=== PATIENT | female | born 1935 | race Caucasian/White ===

== ENCOUNTER 2016-10-14 10:34 | Inpatient (IN) | payer MEDICARE, OTHER ==
--- NOTE | 2016-10-14 11:14 | ERPHSYRPT ---
- History of Present Illness Time Seen by Provider: 10/14/16 11:04 Source: patient, family Exam Limitations: no limitations Patient Subjective Stated Complaint: altered loc Triage Nursing Assessment: daughter stated pt called her this morning and thought she had her granddaughter and cant find her. when her daughter came over , pt was diaphoretic and 'wasnt making sense. on arrival, scattered thought process. denies pain or fall. states 'i feel like im getting my mind back now' alert to name, place and time. hair wet from sweat but skin dry. states felt funny at home and then ate peanut butter and toast prior to arrival. Physician History: The patient is an 81-year-old female with her daughter complaining that she was confused earlier this morning. She was also shaky and sweaty this morning. Yesterday she wasn't feeling well. Today she says she feels "off". She's had a cough for 2 months. She has a past medical history significant for COPD, hypertension, high cholesterol, and hypothyroidism. She's had her gallbladder removed. Timing/Duration: day(s) (2) Severity: moderate Modifying Factors: Improves With: nothing Associated Symptoms: cough Allergies/Adverse Reactions: No Known Allergies Allergy (Verified 10/14/16 11:00) Home Medications: Hydralazine HCl 50 mg PO QID 06/02/14 [History] Potassium Chloride 10 Meq Tab* [Klor Con 10 MEQ] 10 meq PO TID 06/02/14 [ History] Lorazepam 1 mg [Ativan 1 MG] 2 mg PO TIDPRN 06/03/14 [History] Aspirin 81 mg PO DAILY 07/12/14 [History] Ascorbic Acid 500 mg [Vitamin C 500 MG] 500 mg PO DAILY 04/05/15 [History] Bumetanide 1 mg [Bumex 1 mg] 1 mg PO BID 04/05/15 [History] Cholecalciferol (Vitamin D3) [Vitamin D3] 1,000 unit PO DAILY 04/05/15 [History] Fluticasone/Vilanterol [Breo Ellipta 100-25 Mcg INH] 1 each IH DAILY 04/05/15 [ History] Magnesium 250 mg PO DAILY 04/05/15 [History] Flaxseed Oil [Flax Seed Oil] 1,000 mg PO DAILY 06/14/15 [History] Multivitamin W-Minerals/Lutein [Centrum Silver Tablet] 1 each PO DAILY 06/14/15 [History] Pregabalin [Lyrica] 75 mg PO TID 06/14/15 [History] Atorvastatin Calcium [Lipitor 40Mg] 40 mg PO DAILY 04/15/16 [History] Benzonatate [Tessalon Perle] 100 mg PO TID PRN 08/06/16 [History] Levothyroxine Sodium 25 Mcg [Synthroid 25 Mcg] 75 mcg PO DAILY 08/06/16 [ History] Albuterol Sulfate [Proair Hfa] 8.5 gm IH QIDPRN PRN 10/14/16 [History] Albuterol/Ipratropium 3ml Neb* [DUONEB 0.5-3 MG/3 ml Neb] 3 ml IH DAILY [History] Docusate Sodium 100 mg [Colace 100 MG] 100 mg PO DAILY 10/14/16 [History] Hydrocodone/Chlorphen Polis [Hydrocodone-Chlorpheniram Susp] 115 ml PO BID 10/14 [History] Losartan Potassium 50 mg [Cozaar 50 MG] 50 mg PO DAILY 10/14/16 [History] Phenazopyridine HCl [Azo Standard] 97.5 mg PO BID 10/14/16 [History] Propranolol HCl 40 mg PO BID 10/14/16 [History] Hx Tetanus, Diphtheria Vaccination/Date Given: Yes Hx Influenza Vaccination/Date Given: No Hx Pneumococcal Vaccination/Date Given: No Immunizations Up to Date: Yes - Review of Systems Constitutional: No Fever, No Chills Eyes: No Symptoms Ears, Nose, & Throat: Throat Pain Respiratory: Cough Cardiac: No Chest Pain, No Edema, No Syncope Abdominal/Gastrointestinal: No Abdominal Pain, No Nausea, No Vomiting, No Diarrhea Genitourinary Symptoms: No Dysuria Musculoskeletal: No Back Pain, No Neck Pain Skin: No Rash Neurological: No Dizziness, No Focal Weakness, No Sensory Changes Psychological: No Symptoms Endocrine: No Symptoms Hematologic/Lymphatic: No Symptoms Immunological/Allergic: No Symptoms All Other Systems: Reviewed and Negative - Past Medical History Pertinent Past Medical History: Yes Neurological History: Peripheral Neuropathy ENT History: Cataracts Cardiac History: No Pertinent History Respiratory History: Bronchitis, COPD, Pneumonia, Sleep Apnea, Other Endocrine Medical History: No Pertinent History Musculoskeletal History: Arthritis GI Medical History: Hemorrhoids History: No Pertinent History Psycho-Social History: Anxiety, Depression Female Reproductive Disorders: Cervical Cancer Other Medical History: 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 tracheal stenosis - Past Surgical History Past Surgical History: Yes Neuro Surgical History: No Pertinent History Cardiac: No Pertinent History Respiratory: Other Gastrointestinal: Appendectomy, Cholecystectomy Genitourinary: No Pertinent History Musculoskeletal: Joint Replacement, Orthopedic Surgery Female Surgical History: Hysterectomy Other Surgical History: Bilateral hip and knee replacements. Arthritis in spine and had spinal surgery. recent tracheal stent placed for stenosis and removed, partial hyst, carpal tunnel - Social History Smoking Status: Former smoker How long have you smoked: 40 years Exposure to second hand smoke: No Drug Use: none Patient Lives Alone: No - Nursing Vital Signs Nursing Vital Signs: Initial Vital Signs Temperature 98.7 F Temperature Source Oral Pulse Rate 74 Respiratory Rate 22 Blood Pressure [Right Arm] 147/100 Pain Intensity 0 - Physical Exam General Appearance: no apparent distress Eye Exam: PERRL/EOMI, eyes nml inspection Ears, Nose, Throat Exam: normal ENT inspection, TMs normal, pharynx normal, moist mucous membranes Neck Exam: normal inspection, non-tender, supple, full range of motion Respiratory Exam: rhonchi Cardiovascular Exam: regular rate/rhythm, normal heart sounds, normal peripheral pulses Gastrointestinal/Abdomen Exam: soft, normal bowel sounds, No tenderness, No mass Pelvic Exam: not done Rectal Exam: not done Back Exam: normal inspection, normal range of motion, No CVA tenderness, No vertebral tenderness Extremity Exam: normal inspection, normal range of motion, pelvis stable Neurologic Exam: alert, oriented x 3, cooperative, normal mood/affect, nml cerebellar function, nml station & gait, sensation nml, No motor deficits Skin Exam: normal color, warm, dry, No rash Lymphatic Exam: No adenopathy SpO2 Interpretation: normal SpO2: 99 Oxygen Delivery: Room Air - Radiology Exams Chest X-ray Interpretation: Interpreted by me, Infiltrates (new infiltrate in sulcus on lateral view, comp cxr 09/20/16) Ordered Tests: Active Orders 24 hr Category Date Time Status Assistant [employer] Professional STAT Care 10/14/16 11:25 Active Cath for Specimen-Straight STAT Care 10/14/16 11:25 Active IV Insertion STAT Care 10/14/16 11:25 Active CHEST 2 VIEWS (PA AND LAT) Stat Exams 10/14/16 11:26 Taken BLOOD CULTURE Stat Lab 10/14/16 11:26 Received CBC W DIFF Stat Lab 10/14/16 11:25 Completed CMP Stat Lab 10/14/16 11:25 Completed NT PRO BNP Stat Lab 10/14/16 11:25 Completed TROPONIN Stat Lab 10/14/16 11:25 Completed UA W/ MICROSCOPIC Stat Lab 10/14/16 11:20 Completed Lab/Rad Data: Laboratory Result Diagrams 10/14/16 11:25 10/14/16 11:25 Laboratory Results 10/14/16 10/14/16 10/14/16 Range/Units 11:25 11:25 11:20 WBC 8.5 (4.0-10.5) K/mm3 RBC 4.04 L (4.1-5.4) M/mm3 Hgb 11.6 L (12.0-16.0) gm/dl Hct 37.7 (35-47) % MCV 93.3 (78-100) fl MCH 28.7 (26-32) pg MCHC 30.8 L (32-36) g/dl RDW 14.9 H (11.5-14.0) % Plt Count 158 (150-450) K/mm3 MPV 11.5 H (6-9.5) fl Gran % 70.8 H (36.0-66.0) % Lymphocytes % 18.0 L (24.0-44.0) % Monocytes % 10.0 (0.0-12.0) % Eosinophils % 0.8 (0.00-5.0) % Basophils % 0.4 (0.0-0.4) % Basophils # 0.03 (0-0.4) Sodium 144 (136-145) mEq/L Potassium 4.2 (3.5-5.1) mEq/L Chloride 103 (98-107) mEq/L Carbon Dioxide 36.5 H (21-32) mEq/L Anion Gap 9.0 (5-15) MEQ/L BUN 29 H (9-20) mg/dL Creatinine 1.22 (0.55-1.30) mg/dl Estimated GFR 45 ML/MIN Glucose 153 H (70-110) MG/DL Calcium 9.8 (8.5-10.1) mg/dL Total Bilirubin 0.5 (0.2-1.0) mg/dL AST 27 (15-37) U/L ALT 27 (12-78) U/L Alkaline Phosphatase 69 (46-116) U/L Troponin I < 0.017 (0.000-0.056) ng/ml NT-Pro-B Natriuret Pep 665 H (0-450) pg/ml Serum Total Protein 7.0 (6.4-8.2) gm/dL Albumin 3.5 (3.4-5.0) g/dL Ur Collection Type CATH Urine Color YELLOW (YELLOW) Urine Appearance CLEAR (CLEAR) Urine pH 7.0 (5-6) Ur Specific [place] 1.015 (1.005-1.025) Urine Protein TRACE (Negative) Urine Glucose (UA) NEGATIVE (NEGATIVE) mg/dL Urine Ketones NEGATIVE (NEGATIVE) Urine Nitrite NEGATIVE (NEGATIVE) Urine Bilirubin NEGATIVE (NEGATIVE) Urine Urobilinogen 0.2 (0-1) mg/dL Urine WBC (Auto) NEGATIVE (NEGATIVE) Urine RBC (Auto) TRACE-INTACT (0-5) Jose Luis/ul Urine Microscopic RBC 0-2 (0-2) /HPF Urine Microscopic WBC 0-2 (0-5) /HPF Ur Epithelial Cells FEW (FEW) /HPF Urine Bacteria FEW (NEGATIVE) /HPF Specimen Received 10/14/16 1045 - Progress Progress: unchanged Discussed with : Faheem Will see patient in: hospital (observation) Counseled pt/family regarding: lab results, diagnosis, rad results - Departure Time of Disposition: 12:56 Departure Disposition: Observation (per Dr Mayen) Clinical Impression: Infiltrate noted on imaging study Condition: Stable Critical Care Time: No
[2016-10-14 11:34] LABS: BASOPHIL % 0.4 % (0.0-0.4); Eosinophil % 0.8 % (0.00-5.0); Granulocytes % 70.8 % (36.0-66.0); Mean Cell Volume 93.3 fl (78-100); Mean Corpuscular Hemoglobin 28.7 pg (26-32); Mean Platelet Volume 11.5 fl (6-9.5); Platelet Count 158 K/mm3 (150-450); Red Blood Count 4.04 M/mm3 (4.1-5.4); Red Cell Distribution Width 14.9 % (11.5-14.0); White Blood Count 8.5 K/mm3 (4.0-10.5)
[2016-10-14 12:15] LABS: Collection Type CATH
[2016-10-14 12:16] LABS: COMPLETE URINE MICROSCOPIC? YES
[2016-10-14 12:21] LABS: Bacteria FEW /HPF (NEGATIVE); Epithelial Cells FEW /HPF (FEW); WBC 0-2 /HPF (0-5)
[2016-10-14 12:22] LABS: ALBUMIN 3.5 g/dL (3.4-5.0); ALKALINE PHOSPHATASE 69 U/L (46-116); BILIRUBIN,TOTAL 0.5 mg/dL (0.2-1.0); BLOOD UREA NITROGEN 29 mg/dL (9-20); CHLORIDE 103 mEq/L (98-107); Carbon Dioxide 36.5 mEq/L (21-32); Glucose 153 MG/DL (70-110); Potassium 4.2 mEq/L (3.5-5.1); SGOT/AST 27 U/L (15-37); SGPT/ALT 27 U/L (12-78); SODIUM 144 mEq/L (136-145); TROPONIN < 0.017 ng/ml (0.000-0.056)
[2016-10-14] MEDS ORDERED: ROCEPHIN 1 Gm-D5w 50 ml Bag** 50 ML IV ONE ×2 (12:56→13:03)
[2016-10-14] MEDS ORDERED: PROVENTIL 2.5 MG/3 ML NEB IH ONE (13:45)
[2016-10-14] MEDS: PROVENTIL 2.5 MG/3 ML NEB IH SCH ×2 (14:10→18:31)
[2016-10-14] MEDS: Zithromax 500 MG/ 250 ML NaCl Premix 250 ML IV SCH (14:44)
[2016-10-14] MEDS ORDERED: Ativan 1 MG PO PRN (17:54)
[2016-10-14] MEDS ORDERED: BUMEX 1 MG PO SCH (18:00)
[2016-10-14] MEDS ORDERED: Tussionex Pennkinetic Susp PO PRN (18:04)
--- NOTE | 2016-10-14 19:42 | XRAY ---
Indication: Cough and pain between shoulder blades. Comparison: September 20, 2016. PA/lateral chest remains hyperinflated and clear. Heart is not enlarged. Vascularity normal. Bony thorax intact again with spinal degenerative changes. Impression: Stable nonacute hyperinflated chest.
[2016-10-14] MEDS: Apresoline 25 MG TABLET PO SCH (21:33)
[2016-10-14] MEDS: Lyrica 25 MG PO SCH (21:33)
[2016-10-14] MEDS: Inderal 20 MG PO SCH (21:33)
[2016-10-14] MEDS: Klor Con 10 MEQ PO SCH (21:33)
[2016-10-14] MEDS: Lyrica 50MG PO SCH (21:34)
[2016-10-15] MEDS: PROVENTIL 2.5 MG/3 ML NEB IH SCH ×4 (00:35→18:43)
[2016-10-15 06:22] LABS: BASOPHIL % 0.4 % (0.0-0.4); Eosinophil % 1.6 % (0.00-5.0); Granulocytes % 52.8 % (36.0-66.0); Lymphocytes % 33.9 % (24.0-44.0); Mean Cell Volume 94.2 fl (78-100); Mean Platelet Volume 11.4 fl (6-9.5); Monocytes % 11.3 % (0.0-12.0); Platelet Count 150 K/mm3 (150-450); Red Cell Distribution Width 15.1 % (11.5-14.0); White Blood Count 7.7 K/mm3 (4.0-10.5)
[2016-10-15 06:27] LABS: Mean Corpuscular Hemoglobin 28.6 pg (26-32)
[2016-10-15 06:57] LABS: ALBUMIN 3.4 g/dL (3.4-5.0); ALKALINE PHOSPHATASE 60 U/L (46-116); ANION GAP 7.6 MEQ/L (5-15); BILIRUBIN,TOTAL 0.5 mg/dL (0.2-1.0); BLOOD UREA NITROGEN 21 mg/dL (9-20); CHLORIDE 107 mEq/L (98-107); Glucose 99 MG/DL (70-110); Potassium 4.7 mEq/L (3.5-5.1); SGOT/AST 12 U/L (15-37); SGPT/ALT 22 U/L (12-78); SODIUM 147 mEq/L (136-145); Total Protein 6.4 gm/dL (6.4-8.2)
[2016-10-15 07:01] LABS: TROPONIN < 0.017 ng/ml (0.000-0.056)
[2016-10-15] MEDS ORDERED: Ventolin Hfa MDI IH PRN (08:35)
[2016-10-15] MEDS: Klor Con 10 MEQ PO SCH ×3 (09:08→22:23)
[2016-10-15] MEDS: Lyrica 25 MG PO SCH ×3 (09:08→22:24)
[2016-10-15] MEDS: BUMEX 1 MG PO SCH ×2 (09:09→17:11)
[2016-10-15] MEDS: Inderal 20 MG PO SCH ×2 (09:09→22:22)
[2016-10-15] MEDS: Lyrica 50MG PO SCH ×3 (09:09→22:23)
[2016-10-15] MEDS: Apresoline 25 MG TABLET PO SCH ×4 (09:09→22:22)
[2016-10-15] MEDS: ZOCOR 20MG PO SCH (09:15)
[2016-10-15] MEDS: MAG-OX 400 PO SCH (09:15)
[2016-10-15] MEDS: Colace 100 MG PO SCH (09:16)
[2016-10-15] MEDS: PYRIDIUM 200 MG PO SCH ×2 (09:16→22:24)
[2016-10-15] MEDS: ECOTRIN 81 MG PO SCH (09:16)
[2016-10-15] MEDS: VITAMIN D PO SCH (09:16)
[2016-10-15] MEDS: THERAGRAN MULTIVITAMIN PO SCH (09:16)
[2016-10-15] MEDS: ROCEPHIN 1 Gm-D5w 50 ml Bag** 50 ML IV SCH (09:17)
[2016-10-15] MEDS: Cozaar 50 MG PO SCH (09:17)
[2016-10-15] MEDS: SYNTHROID 75 MCG PO SCH (09:17)
[2016-10-15] MEDS ORDERED: NON-FORMULARY ITEM (Cholecalciferol (Vitamin D3) [Vitamin D3] 1,000 UNIT) PO SCH (10:00)
[2016-10-15] MEDS ORDERED: LIPITOR 40MG PO SCH (10:00)
[2016-10-15] MEDS ORDERED: SYNTHROID 25 MCG PO SCH (10:00)
[2016-10-15] MEDS ORDERED: NON-FORMULARY ITEM (Magnesium [Magnesium] 250 MG) PO SCH (10:00)
[2016-10-15] MEDS ORDERED: NON-FORMULARY ITEM (Aspirin [Aspirin] 81 MG) PO SCH (10:00)
[2016-10-15] MEDS ORDERED: PHENAZOPYRIDINE HCL 97.5 MG PO SCH (10:00)
[2016-10-15] MEDS ORDERED: NON-FORMULARY ITEM (Multivitamin W-Minerals/Lutein [Centrum Silver Tablet] 1 EACH) PO SCH (10:00)
[2016-10-15] MEDS ORDERED: NON-FORMULARY ITEM (Fluticasone/Vilanterol [Breo Ellipta 100-25 Mcg Inh] 1 EACH) IH SCH (10:00)
[2016-10-15] MEDS: Vitamin C 500 MG PO SCH ×2 (10:10→15:10)
[2016-10-15] MEDS: LOTRIMIN CREAM 30 GM TP SCH ×2 (12:52→22:23)
[2016-10-15] MEDS: solu-MEDROL 125 MG IV SCH ×2 (13:02→22:24)
[2016-10-15] MEDS: Zithromax 500 MG/ 250 ML NaCl Premix 250 ML IV SCH (15:09)
[2016-10-15] MEDS: Advair Hfa 115/21 Common canister IH SCH (18:45)
[2016-10-15] MEDS: Ativan 1 MG PO PRN (22:25)
[2016-10-15] MEDS: Tussionex Pennkinetic Susp PO PRN (22:28)
[2016-10-16] MEDS: PROVENTIL 2.5 MG/3 ML NEB IH SCH ×4 (00:23→18:55)
[2016-10-16] MEDS: solu-MEDROL 125 MG IV SCH ×2 (06:12→18:46)
[2016-10-16] MEDS: Advair Hfa 115/21 Common canister IH SCH ×2 (06:50→19:03)
--- NOTE | 2016-10-16 07:40 | HP ---
CHIEF COMPLAINT: Altered mental status and dyspnea on exertion. HISTORY OF PRESENT ILLNESS: The patient is an 81 year-old white female with a long history of chronic obstructive pulmonary disease. She apparently became confused last evening. She was noted to be very short of breath on any ambulation. The patient was felt the need to be admitted to the hospital with altered mental status, further evaluation and management. The patient's work up was essentially unrevealing other than her observed status as being more short of breath than usual. PAST MEDICAL/SURGICAL HISTORY: Otherwise significant for pneumonia, sleep apnea, peripheral neuropathy, cataracts, arthritis, hemorrhoids, anxiety and depression. She has had cervical cancer. She had a hysterectomy, joint replacement orthopedic surgery for that, appendectomy, cholecystectomy, bilateral knee replacement. She had a tracheal stent placed and then removed due to her inability to tolerate it. HOME MEDICATIONS: Potassium, lorazepam, aspirin, vitamin C, vitamin D, fluticasone, magnesium, flax seed oil, multivitamins, Lyrica, Lipitor, Tessalon, Synthroid, ProAir, DuoNeb, Colace, hydrocodone, Cozaar, phenazopyridine, propranolol. ALLERGIES: NKDA. PHYSICAL EXAMINATION: Revealed an obese, elderly white female whose is significantly dyspneic upon having just walked back to her bed from the sink. VITAL SIGNS: The patient's initial vital signs in the emergency room revealed temperature 98.7F oral, pulse 74, respiratory rate 22, blood pressure 147/100. HEENT: Normocephalic, atraumatic. She is wearing oxygen per nasal cannula at 4 liters presently. Pupils equal, round and reactive to light. Extraocular movements intact. Oropharynx pink and moist. NECK: Supple without lymphadenopathy, thyromegaly or JVD. CHEST: Reveals diffuse wheezes. HEART: Regular rate and rhythm without murmurs, rubs or gallops. ABDOMEN: Soft, nontender, nondistended without hepatosplenomegaly or masses. EXTREMITIES: Without clubbing, cyanosis or edema. NEUROLOGIC: The patient is alert and oriented x3. No focal deficits are noted. LAB DATA AND TESTS: Chest x-ray showed no new infiltrates. Influenza A and B and respiratory syncytial virus were negative. She had a glucose of 153, BUN 29, creatinine 1.22. Electrolytes were normal. Liver enzymes were normal. Troponin was less than 0.017. ProBNP was slightly elevated at 665. Her white blood cell count was 8,500, hemoglobin 11.6, PLT count 156,000. ASSESSMENT: A patient with chronic obstructive pulmonary disease exacerbation. She has been admitted and placed on Rocephin and Zithromax. We will add Solu-Medrol 60 mg IV every 8 hours. Her mental status has apparently cleared up from when she was seen in the emergency room as she recognizes me, is alert and oriented x3 presently.
--- NOTE | 2016-10-16 09:02 | PCM.NOTE ---
Date and Time: 10/16/16 0900 Subjective Assessment: She continues to have dyspnea and feel weak. She feels like her altered mental status has improved. She reports she has BiPAP that she can wear at home if needed. - Review of Systems Constitutional: Fatigue Eyes: No Symptoms Ears, Nose, & Throat: No Symptoms Respiratory: Cough, Short Of Breath, Wheezing Cardiac: No Symptoms Abdominal/Gastrointestinal: No Symptoms Genitourinary Symptoms: No Symptoms Musculoskeletal: No Symptoms Skin: No Symptoms Objective Exam General Appearance: no apparent distress, alert Neurologic Exam: alert, oriented x 3, cooperative, normal mood/affect Skin Exam: normal color, warm, dry, No rash Respiratory Exam: airway intact, other (few scattered wheezes, equal breath sounds), No respiratory distress, No crackles/rales Cardiovascular Exam: regular rate/rhythm, normal heart sounds, No murmur, No friction rub, No gallop Gastrointestinal/Abdomen Exam: soft, normal bowel sounds, No tenderness, No distention, No mass Extremity Exam: other (no c/c/e) OBJECTIVE DATA Vital Signs: Vital Signs - 24 hr Temp Pulse Resp BP Pulse Ox 10/16/16 07:35 97.7 F 56 L 22 152/69 97 10/16/16 06:00 55 L 16 99 10/16/16 04:00 97.5 F 50 L 20 129/58 95 10/16/16 00:00 97.6 F 54 L 22 163/73 97 10/15/16 20:00 98.4 F 68 15 147/59 97 10/15/16 18:00 68 22 97 10/15/16 16:00 98.3 F 54 L 19 149/67 97 10/15/16 12:00 98.5 F 62 20 161/68 96 Oxygen-Last 24 hours O2 Percentage 4 Liters = 36% O2 Percentage 4 Liters = 36% O2 Percentage 4 Liters = 36% O2 Percentage 4 Liters = 36% O2 Percentage 4 Liters = 36% O2 Percentage 4 Liters = 36% Pain Assessment - Last Documented Pain Intensity 0 Pain Scale Used 0-10 Pain Scale Intake and Output: Intake & Output 10/14/16 10/15/16 10/16/16 10/17/16 06:59 06:59 06:59 06:59 Intake Total 1360 1400 Output Total 3900 Balance 1360 -2500 Weight 99.564 kg Multi-Disciplinary Progress Notes: Multi-Disciplinary Progress Notes 10/15/16 10:03 Case Management Note by Meagan Flower DISCHARGE PLAN REVIEWED. PT NORMALLY LIVES AT HOME ALONE, HAS A WALKER AND USES HOME OXYGEN. PT REFUSED TO ASSIGN A LAY CAREGIVER. PLAN AT THIS ASSESSMENT IS TO GO HOME TO PRE EISODIC LEVEL OF FUNCTION. WILL CONTINUE TO MONITOR FOR ALL D/C NEEDS. Initialized on 10/15/16 10:03 - END OF NOTE Assessment/Plan (1) Acute exacerbation of chronic obstructive airways disease Current Visit: No Status: Acute Assessment & Plan: Decrease solumedrol to 60 mg IV q 12 hours today. Continue IV antibiotics. Continue oxygen as needed. Will as for Bipap at night. Code(s): J44.1 - CHRONIC OBSTRUCTIVE PULMONARY DISEASE W (ACUTE) EXACERBATION
[2016-10-16] MEDS: PYRIDIUM 200 MG PO SCH ×2 (09:16→21:58)
[2016-10-16] MEDS: SYNTHROID 75 MCG PO SCH (09:16)
[2016-10-16] MEDS: Lyrica 25 MG PO SCH ×3 (09:17→21:55)
[2016-10-16] MEDS: Colace 100 MG PO SCH (09:17)
[2016-10-16] MEDS: VITAMIN D PO SCH (09:17)
[2016-10-16] MEDS: Apresoline 25 MG TABLET PO SCH ×4 (09:18→21:57)
[2016-10-16] MEDS: ECOTRIN 81 MG PO SCH (09:18)
[2016-10-16] MEDS: ZOCOR 20MG PO SCH (09:18)
[2016-10-16] MEDS: Lyrica 50MG PO SCH ×3 (09:18→21:56)
[2016-10-16] MEDS: BUMEX 1 MG PO SCH ×2 (09:18→18:45)
[2016-10-16] MEDS: Klor Con 10 MEQ PO SCH ×3 (09:18→21:57)
[2016-10-16] MEDS: Cozaar 50 MG PO SCH (09:19)
[2016-10-16] MEDS: MAG-OX 400 PO SCH (09:19)
[2016-10-16] MEDS: THERAGRAN MULTIVITAMIN PO SCH (09:19)
[2016-10-16] MEDS: Inderal 20 MG PO SCH ×2 (09:27→22:03)
[2016-10-16] MEDS: ROCEPHIN 1 Gm-D5w 50 ml Bag** 50 ML IV SCH (10:01)
[2016-10-16] MEDS: LOTRIMIN CREAM 30 GM TP SCH ×2 (10:08→21:58)
[2016-10-16] MEDS: Vitamin C 500 MG PO SCH (10:09)
[2016-10-16] MEDS: ENOXAPARIN SODIUM SQ SCH (10:13)
[2016-10-16 12:54] LABS: Collection Type CCMS; Ph 5.5 (5-6)
[2016-10-16 12:55] LABS: ADD URINE CULTURE? YES (NO); Bacteria RARE /HPF (NEGATIVE); COMPLETE URINE MICROSCOPIC? YES; Epithelial Cells FEW /HPF (FEW); WBC 0-2 /HPF (0-5)
[2016-10-16] MEDS: Zithromax 500 MG/ 250 ML NaCl Premix 250 ML IV SCH (14:53)
[2016-10-16] MEDS: Tussionex Pennkinetic Susp PO PRN (21:55)
[2016-10-16] MEDS: Ativan 1 MG PO PRN (21:57)
[2016-10-17] MEDS: PROVENTIL 2.5 MG/3 ML NEB IH SCH ×4 (00:41→18:51)
[2016-10-17] MEDS: solu-MEDROL 125 MG IV SCH ×2 (05:22→18:02)
[2016-10-17] MEDS: Advair Hfa 115/21 Common canister IH SCH ×2 (07:00→18:51)
--- NOTE | 2016-10-17 08:54 | PCM.NOTE ---
Date and Time: 10/17/16 0852 Subjective Assessment: She reports she is feeling better and slept much better. She has been eating and drinking well and things are tasting better. She has been up in her room and up to a chair. - Review of Systems Constitutional: Fatigue Eyes: No Symptoms Ears, Nose, & Throat: No Symptoms Respiratory: Cough, Short Of Breath, Wheezing Cardiac: No Symptoms Abdominal/Gastrointestinal: No Symptoms Genitourinary Symptoms: No Symptoms Musculoskeletal: No Symptoms Skin: No Symptoms Objective Exam General Appearance: no apparent distress Neurologic Exam: alert, cooperative, normal mood/affect Skin Exam: normal color, warm, dry, No rash Respiratory Exam: other (few scattered wheezes, no crackles, no rhonchi.) Cardiovascular Exam: regular rate/rhythm, normal heart sounds, No murmur, No friction rub, No gallop Gastrointestinal/Abdomen Exam: soft, normal bowel sounds, No tenderness, No distention, No mass Extremity Exam: other (no c/c/e) OBJECTIVE DATA Vital Signs: Vital Signs - 24 hr Temp Pulse Resp BP Pulse Ox 10/17/16 08:00 19 10/17/16 07:20 97.8 F 58 L 19 185/79 95 10/17/16 07:00 58 L 18 96 10/17/16 04:00 97.9 F 65 17 122/68 95 10/17/16 00:41 54 L 18 97 10/17/16 00:00 97.8 F 67 20 128/72 96 10/16/16 20:00 98.5 F 55 L 20 128/60 96 10/16/16 18:00 55 L 22 98 10/16/16 16:02 98 F 58 L 20 134/68 97 10/16/16 12:42 60 20 98 10/16/16 12:00 20 10/16/16 11:23 98.4 F 97 H 20 136/63 97 Oxygen-Last 24 hours O2 Percentage 4 Liters = 36% O2 Percentage 4 Liters = 36% O2 Percentage 4 Liters = 36% O2 Percentage 4 Liters = 36% O2 Percentage 4 Liters = 36% Pain Assessment - Last Documented Pain Intensity 0 Pain Scale Used 0-10 Pain Scale Intake and Output: Intake & Output 10/15/16 10/16/16 10/17/16 10/18/16 06:59 06:59 06:59 06:59 Intake Total 1000 1820 Output Total 3900 2600 Balance -8980 -957 Lab Results: Lab Results-Last 24 Hours 10/16/16 Range/Units 12:17 Ur Collection Type CCMS Urine Color DARK YELLOW (YELLOW) Urine Appearance CLEAR (CLEAR) Urine pH 5.5 (5-6) Ur Specific [place] 1.015 (1.005-1.025) Urine Protein NEGATIVE (Negative) Urine Glucose (UA) 500 (NEGATIVE) mg/dL Urine Ketones NEGATIVE (NEGATIVE) Urine Nitrite POSITIVE (NEGATIVE) Urine Bilirubin NEGATIVE (NEGATIVE) Urine Urobilinogen 0.2 (0-1) mg/dL Urine WBC (Auto) NEGATIVE (NEGATIVE) Urine RBC (Auto) NEGATIVE (0-5) Jose Luis/ul Urine Microscopic WBC 0-2 (0-5) /HPF Ur Epithelial Cells FEW (FEW) /HPF Urine Bacteria RARE (NEGATIVE) /HPF Specimen Received 10-16-16 1224 Assessment/Plan (1) Acute exacerbation of chronic obstructive airways disease Current Visit: No Status: Acute Assessment & Plan: Continue with IV antibiotics, IV steroids, breathing treatments and oxygen. Starting to improve slowly. Code(s): J44.1 - CHRONIC OBSTRUCTIVE PULMONARY DISEASE W (ACUTE) EXACERBATION
[2016-10-17 09:14] LABS: ANION GAP 13.5 MEQ/L (5-15); Carbon Dioxide 36.3 mEq/L (21-32); Potassium 5.1 mEq/L (3.5-5.1)
[2016-10-17] MEDS ORDERED: Tums EX 750 MG PO PRN (09:19)
[2016-10-17] MEDS: ROCEPHIN 1 Gm-D5w 50 ml Bag** 50 ML IV SCH (10:00)
[2016-10-17] MEDS: ENOXAPARIN SODIUM SQ SCH (10:00)
[2016-10-17] MEDS: LOTRIMIN CREAM 30 GM TP SCH ×2 (10:00→21:22)
[2016-10-17] MEDS: SYNTHROID 75 MCG PO SCH (10:01)
[2016-10-17] MEDS: Apresoline 25 MG TABLET PO SCH ×4 (10:01→21:21)
[2016-10-17] MEDS: MAG-OX 400 PO SCH (10:01)
[2016-10-17] MEDS: PYRIDIUM 200 MG PO SCH ×2 (10:01→21:22)
[2016-10-17] MEDS: Inderal 20 MG PO SCH ×2 (10:02→21:22)
[2016-10-17] MEDS: THERAGRAN MULTIVITAMIN PO SCH (10:02)
[2016-10-17] MEDS: Colace 100 MG PO SCH (10:02)
[2016-10-17] MEDS: ZOCOR 20MG PO SCH (10:02)
[2016-10-17] MEDS: Lyrica 50MG PO SCH ×3 (10:02→21:22)
[2016-10-17] MEDS: Lyrica 25 MG PO SCH ×3 (10:02→21:22)
[2016-10-17] MEDS: BUMEX 1 MG PO SCH ×2 (10:02→16:45)
[2016-10-17] MEDS: ECOTRIN 81 MG PO SCH (10:03)
[2016-10-17] MEDS: Cozaar 50 MG PO SCH (10:03)
[2016-10-17] MEDS: Vitamin C 500 MG PO SCH (10:03)
[2016-10-17] MEDS: VITAMIN D PO SCH (10:06)
[2016-10-17] MEDS ORDERED: TUMS EX TABLETS PO PRN (14:30)
[2016-10-17] MEDS: Zithromax 500 MG/ 250 ML NaCl Premix 250 ML IV SCH (14:30)
[2016-10-17] MEDS: Ativan 1 MG PO PRN (21:23)
[2016-10-17] MEDS: Tussionex Pennkinetic Susp PO PRN (21:23)
[2016-10-17] MEDS: NovoLOG Insulin SQ PRN (21:28)
[2016-10-18] MEDS: PROVENTIL 2.5 MG/3 ML NEB IH SCH ×4 (00:24→19:29)
[2016-10-18] MEDS: solu-MEDROL 125 MG IV SCH ×2 (05:17→17:07)
[2016-10-18] MEDS: Advair Hfa 115/21 Common canister IH SCH ×2 (07:07→19:29)
--- NOTE | 2016-10-18 08:52 | PCM.NOTE ---
Date and Time: 10/18/16 0849 Subjective Assessment: She reports that she sometimes gets chest pain when she feels like there is a bubble in her stomach. She reports Dr. Sin has checked out her heart and told her that was fine . Her appetite has been good. She has been up around her room but still gets short of breath. - Review of Systems Constitutional: Fatigue Eyes: No Symptoms Respiratory: Cough, Short Of Breath, Wheezing Cardiac: No Symptoms Abdominal/Gastrointestinal: No Symptoms Genitourinary Symptoms: No Symptoms Musculoskeletal: No Symptoms Skin: No Symptoms Neurological: No Symptoms Objective Exam General Appearance: no apparent distress, alert Neurologic Exam: alert, cooperative, normal mood/affect Skin Exam: normal color, warm, dry, No rash Respiratory Exam: airway intact, other (scattered wheezes, equal breath sounds) , No respiratory distress, No accessory muscle use, No crackles/rales, No rhonchi Cardiovascular Exam: regular rate/rhythm, normal heart sounds, No murmur, No friction rub, No gallop Gastrointestinal/Abdomen Exam: soft, normal bowel sounds, No tenderness, No distention, No mass Extremity Exam: other (no c/c/e) OBJECTIVE DATA Vital Signs: Vital Signs - 24 hr Temp Pulse Resp BP Pulse Ox 10/18/16 08:00 20 10/18/16 07:44 97.7 F 57 L 20 146/65 98 10/18/16 07:08 53 L 16 97 10/18/16 04:00 98.1 F 75 16 160/58 95 10/18/16 00:00 54 L 20 96 10/17/16 23:50 97.7 F 60 16 135/62 95 10/17/16 20:00 98.1 F 71 17 152/62 92 L 10/17/16 18:54 56 L 20 98 10/17/16 16:00 98.0 F 55 L 18 139/61 99 10/17/16 13:31 53 L 18 97 10/17/16 12:00 20 10/17/16 11:18 97.9 F 52 L 20 141/65 98 Oxygen-Last 24 hours O2 Percentage 5 Liters = 40% O2 Percentage 4 Liters = 36% O2 Percentage 4 Liters = 36% O2 Percentage 4 Liters = 36% Pain Assessment - Last Documented Pain Intensity 0 Pain Scale Used 0-10 Pain Scale Intake and Output: Intake & Output 10/16/16 10/17/16 10/18/16 10/19/16 06:59 06:59 06:59 06:59 Intake Total 1000 1820 1600 Output Total 3900 2600 2550 Balance -2900 -780 -950 Weight 99.564 kg Lab Results: Accuchecks Date 10/18/16 Date 10/17/16 Date 10/17/16 Time 07:25 Time 17:35 Time 13:06 Accucheck Value: 189 Accucheck Value: 178 Accucheck Value: 226 Lab Results-Last 24 Hours 10/17/16 10/17/16 10/17/16 Range/Units 08:43 09:18 13:10 Sodium 144 (136-145) mEq/L Potassium 5.1 (3.5-5.1) mEq/L Chloride 99 (98-107) mEq/L Carbon Dioxide 36.3 H (21-32) mEq/L Anion Gap 13.5 (5-15) MEQ/L BUN 41 H (9-20) mg/dL Creatinine 1.51 H (0.55-1.30) mg/dl Estimated GFR 35 ML/MIN Glucose 262 H (70-110) MG/DL Calcium 9.5 (8.5-10.1) mg/dL Troponin I < 0.017 < 0.017 (0.000-0.056) ng/ml Assessment/Plan (1) Acute exacerbation of chronic obstructive airways disease Current Visit: No Status: Resolved Assessment & Plan: Continue with steroids but will change to oral steroids today. Continue with IV antibiotics. Continue oxygen and breathing treatments. Code(s): J44.1 - CHRONIC OBSTRUCTIVE PULMONARY DISEASE W (ACUTE) EXACERBATION
[2016-10-18] MEDS: Lyrica 25 MG PO SCH ×3 (08:54→21:56)
[2016-10-18] MEDS: ENOXAPARIN SODIUM SQ SCH (08:54)
[2016-10-18] MEDS: Inderal 20 MG PO SCH ×2 (08:54→21:56)
[2016-10-18] MEDS: PYRIDIUM 200 MG PO SCH ×2 (08:54→21:56)
[2016-10-18] MEDS: SYNTHROID 75 MCG PO SCH (08:55)
[2016-10-18] MEDS: BUMEX 1 MG PO SCH ×2 (08:55→16:36)
[2016-10-18] MEDS: THERAGRAN MULTIVITAMIN PO SCH (08:55)
[2016-10-18] MEDS: VITAMIN D PO SCH (08:56)
[2016-10-18] MEDS: Lyrica 50MG PO SCH ×3 (08:56→21:56)
[2016-10-18] MEDS: Apresoline 25 MG TABLET PO SCH ×4 (08:56→21:56)
[2016-10-18] MEDS: MAG-OX 400 PO SCH (08:56)
[2016-10-18] MEDS: ZOCOR 20MG PO SCH (08:57)
[2016-10-18] MEDS: Tessalon Perles 100 MG PO PRN (08:57)
[2016-10-18] MEDS: ECOTRIN 81 MG PO SCH (08:57)
[2016-10-18] MEDS: Vitamin C 500 MG PO SCH (08:58)
[2016-10-18] MEDS: Colace 100 MG PO SCH (08:58)
[2016-10-18] MEDS: Cozaar 50 MG PO SCH (08:58)
[2016-10-18] MEDS: LOTRIMIN CREAM 30 GM TP SCH ×2 (08:58→21:55)
[2016-10-18] MEDS: ROCEPHIN 1 Gm-D5w 50 ml Bag** 50 ML IV SCH (08:59)
[2016-10-18] MEDS: Zithromax 500 MG/ 250 ML NaCl Premix 250 ML IV SCH (13:42)
[2016-10-18] MEDS: NovoLOG Insulin SQ PRN (16:34)
[2016-10-18] MEDS: Tussionex Pennkinetic Susp PO PRN (21:57)
[2016-10-18] MEDS: Ativan 1 MG PO PRN (21:57)
[2016-10-19] MEDS: PROVENTIL 2.5 MG/3 ML NEB IH SCH ×2 (00:57→06:38)
[2016-10-19] MEDS: solu-MEDROL 125 MG IV SCH (06:11)
[2016-10-19] MEDS: Advair Hfa 115/21 Common canister IH SCH (06:38)
[2016-10-19 06:50] VITALS: O2SAT 97
[2016-10-19] MEDS: NovoLOG Insulin SQ PRN (07:22)
[2016-10-19 07:24] VITALS: BP 132/77; PULSE 59
[2016-10-19] MEDS: ENOXAPARIN SODIUM SQ SCH (09:02)
[2016-10-19] MEDS: PYRIDIUM 200 MG PO SCH (09:02)
[2016-10-19] MEDS: Lyrica 25 MG PO SCH (09:03)
[2016-10-19] MEDS: BUMEX 1 MG PO SCH (09:03)
[2016-10-19] MEDS: Tessalon Perles 100 MG PO PRN (09:04)
[2016-10-19] MEDS: SYNTHROID 75 MCG PO SCH (09:04)
[2016-10-19] MEDS: Apresoline 25 MG TABLET PO SCH (09:04)
[2016-10-19] MEDS: ZOCOR 20MG PO SCH (09:04)
[2016-10-19] MEDS: ECOTRIN 81 MG PO SCH (09:04)
[2016-10-19] MEDS: Cozaar 50 MG PO SCH (09:05)
[2016-10-19] MEDS: Inderal 20 MG PO SCH (09:05)
[2016-10-19] MEDS: THERAGRAN MULTIVITAMIN PO SCH (09:05)
[2016-10-19] MEDS: Colace 100 MG PO SCH (09:05)
[2016-10-19] MEDS: MAG-OX 400 PO SCH (09:05)
[2016-10-19] MEDS: LOTRIMIN CREAM 30 GM TP SCH (09:06)
[2016-10-19] MEDS: ROCEPHIN 1 Gm-D5w 50 ml Bag** 50 ML IV SCH (09:06)
[2016-10-19] MEDS: Lyrica 50MG PO SCH (09:06)
[2016-10-19] MEDS: Vitamin C 500 MG PO SCH (09:06)
[2016-10-19] MEDS: VITAMIN D PO SCH (09:06)
[2016-10-19] MEDS ORDERED: solu-MEDROL 125 MG IV SCH (09:20)
--- NOTE | 2016-10-19 13:05 | DS ---
DISCHARGE DIAGNOSIS: CHRONIC OBSTRUCTIVE PULMONARY DISEASE EXACERBATION. DISCHARGE PHYSICAL EXAMINATION: VITALS: Temperature current 97.8F, temperature max 97.9F, heart rate 48 to 60, respiratory rate 14 to 16, blood pressure 128 to 164 over 58 to 77. Oxygen saturation 96 to 97% on 4 liters nasal cannula. GENERAL: The patient is a pleasant talkative lady sitting up in bed. She just returned from the bathroom and is dyspneic at rest. CVS: She has a regular rate and rhythm. No murmurs, gallops or rubs are appreciated. CHEST: Clear to auscultation bilaterally with distant breath sounds. No crackles or wheezes at this time. ABDOMEN: Soft, nontender, nondistended with normal bowel sounds. EXTREMITIES: No clubbing, cyanosis or edema. SKIN: Warm, dry and intact. HOSPITAL COURSE: CHRONIC OBSTRUCTIVE PULMONARY DISEASE EXACERBATION: She was started azithromycin, ceftriaxone. She has finished five days of azithromycin this will be day six of ceftriaxone, will continue with the ceftriaxone, will continue with oxygen and breathing treatments and will try to do some rehab in a swing-bed here to get her endurance built up. DISCHARGE MEDICATIONS: She will continue all of her current inpatient medications. DISPOSITION: The patient was discharged to swing-bed in fair condition.
== END 2016-10-19 10:00 | disposition swing bed (61) | DRG 192 ==
LOC: ED 10:34 → MED SURG 13:15 → OBSVTOIN 10-15 10:09
PROVIDERS: ADMIT Family Medicine; ATTEND Internal Medicine
DX: J44.1 Chronic obstructive pulmonary disease with (acute) exacerbation (principal); G47.30 Sleep apnea, unspecified; G62.9 Polyneuropathy, unspecified; M19.90 Unspecified osteoarthritis, unspecified site; Z85.41 Personal history of malignant neoplasm of cervix uteri; Z79.899 Other long term (current) drug therapy
CPT/HCPCS: 36000; 36415; 71020; 80048; 80053; 81000; 82962; 83880; 84484; 85025; 87040; 87086; 87631; 93041; 93268; 94640; 94760; 96365; 99284; 99285; G0378; J0456; J0696; J1650; J2930; P9612

== ENCOUNTER 2016-10-19 10:00 | Inpatient (IN) | payer MEDICARE, OTHER ==
[2016-10-19] MEDS ORDERED: TUMS EX TABLETS PO PRN (10:41)
[2016-10-19] MEDS ORDERED: Tessalon Perles 100 MG PO PRN (10:41)
[2016-10-19] MEDS: NovoLOG Insulin SQ PRN (11:15)
[2016-10-19] MEDS: Apresoline 25 MG TABLET PO SCH ×3 (12:56→22:52)
[2016-10-19] MEDS: PROVENTIL 2.5 MG/3 ML NEB IH SCH ×2 (12:59→20:10)
[2016-10-19] MEDS: Lyrica 50MG PO SCH ×2 (15:14→22:52)
[2016-10-19] MEDS: Lyrica 25 MG PO SCH ×2 (15:14→22:53)
[2016-10-19] MEDS: BUMEX 1 MG PO SCH (16:27)
[2016-10-19] MEDS: Tussionex Pennkinetic Susp PO PRN (16:31)
[2016-10-19] MEDS: Advair Hfa 115/21 Common canister IH SCH (20:10)
[2016-10-19] MEDS: LOTRIMIN CREAM 30 GM TP SCH (22:52)
[2016-10-19] MEDS: Inderal 20 MG PO SCH (22:52)
[2016-10-19] MEDS: PYRIDIUM 200 MG PO SCH (22:53)
[2016-10-19] MEDS: Ativan 1 MG PO PRN (22:53)
[2016-10-19] MEDS: solu-MEDROL 40 MG IV SCH (22:53)
[2016-10-20] MEDS: PROVENTIL 2.5 MG/3 ML NEB IH SCH ×4 (01:14→20:03)
[2016-10-20] MEDS: Advair Hfa 115/21 Common canister IH SCH ×2 (06:29→20:05)
[2016-10-20] MEDS: Lyrica 25 MG PO SCH ×3 (09:15→22:01)
[2016-10-20] MEDS: SYNTHROID 75 MCG PO SCH (09:15)
[2016-10-20] MEDS: Colace 100 MG PO SCH (09:15)
[2016-10-20] MEDS: ECOTRIN 81 MG PO SCH (09:15)
[2016-10-20] MEDS: VITAMIN D PO SCH (09:15)
[2016-10-20] MEDS: BUMEX 1 MG PO SCH ×2 (09:15→17:57)
[2016-10-20] MEDS: THERAGRAN MULTIVITAMIN PO SCH (09:15)
[2016-10-20] MEDS: Cozaar 50 MG PO SCH (09:15)
[2016-10-20] MEDS: Inderal 20 MG PO SCH ×2 (09:15→22:01)
[2016-10-20] MEDS: Apresoline 25 MG TABLET PO SCH ×4 (09:15→22:02)
[2016-10-20] MEDS: Lyrica 50MG PO SCH ×3 (09:15→22:01)
[2016-10-20] MEDS: PYRIDIUM 200 MG PO SCH ×2 (09:15→21:59)
[2016-10-20] MEDS: ZOCOR 20MG PO SCH (09:15)
[2016-10-20] MEDS: MAG-OX 400 PO SCH (09:15)
[2016-10-20] MEDS: solu-MEDROL 40 MG IV SCH ×2 (09:16→21:59)
[2016-10-20] MEDS: ENOXAPARIN SODIUM SQ SCH (09:16)
[2016-10-20] MEDS: Vitamin C 500 MG PO SCH (09:16)
[2016-10-20] MEDS: ROCEPHIN 1 Gm-D5w 50 ml Bag** 50 ML IV SCH (09:16)
[2016-10-20] MEDS: LOTRIMIN CREAM 30 GM TP SCH ×2 (09:17→22:06)
[2016-10-20] MEDS ORDERED: Aplisol ID SCH (10:00)
[2016-10-20] MEDS: NovoLOG Insulin SQ PRN ×2 (11:45→17:57)
[2016-10-20] MEDS: Tussionex Pennkinetic Susp PO PRN (21:59)
[2016-10-20] MEDS: Ativan 1 MG PO PRN (22:01)
[2016-10-21] MEDS: PROVENTIL 2.5 MG/3 ML NEB IH SCH ×4 (01:04→19:25)
[2016-10-21] MEDS: Advair Hfa 115/21 Common canister IH SCH ×2 (06:59→19:27)
[2016-10-21] MEDS: PYRIDIUM 200 MG PO SCH ×2 (09:50→22:03)
[2016-10-21] MEDS: LOTRIMIN CREAM 30 GM TP SCH ×2 (09:50→21:59)
[2016-10-21] MEDS: Lyrica 50MG PO SCH ×3 (09:58→22:03)
[2016-10-21] MEDS: VITAMIN D PO SCH (09:58)
[2016-10-21] MEDS: Colace 100 MG PO SCH (09:58)
[2016-10-21] MEDS: ECOTRIN 81 MG PO SCH (09:58)
[2016-10-21] MEDS: BUMEX 1 MG PO SCH ×2 (09:58→17:31)
[2016-10-21] MEDS: Lyrica 25 MG PO SCH ×3 (09:58→22:01)
[2016-10-21] MEDS: Cozaar 50 MG PO SCH (09:58)
[2016-10-21] MEDS: MAG-OX 400 PO SCH (09:58)
[2016-10-21] MEDS: Apresoline 25 MG TABLET PO SCH ×4 (09:58→22:00)
[2016-10-21] MEDS: ZOCOR 20MG PO SCH (09:59)
[2016-10-21] MEDS: THERAGRAN MULTIVITAMIN PO SCH (09:59)
[2016-10-21] MEDS: Vitamin C 500 MG PO SCH (09:59)
[2016-10-21] MEDS: SYNTHROID 75 MCG PO SCH (09:59)
[2016-10-21] MEDS: Inderal 20 MG PO SCH ×2 (10:00→22:00)
[2016-10-21] MEDS: ENOXAPARIN SODIUM SQ SCH (10:05)
[2016-10-21] MEDS: solu-MEDROL 40 MG IV SCH ×2 (10:05→22:00)
[2016-10-21] MEDS: ROCEPHIN 1 Gm-D5w 50 ml Bag** 50 ML IV SCH (10:05)
[2016-10-21] MEDS: NovoLOG Insulin SQ PRN ×3 (12:25→22:22)
[2016-10-21] MEDS: Tussionex Pennkinetic Susp PO PRN (21:59)
[2016-10-21] MEDS: Ativan 1 MG PO PRN (22:01)
[2016-10-22] MEDS: PROVENTIL 2.5 MG/3 ML NEB IH SCH ×4 (00:55→19:38)
[2016-10-22] MEDS: Advair Hfa 115/21 Common canister IH SCH ×2 (07:16→19:38)
[2016-10-22] MEDS: ROCEPHIN 1 Gm-D5w 50 ml Bag** 50 ML IV SCH (08:59)
[2016-10-22] MEDS: BUMEX 1 MG PO SCH ×2 (09:00→16:21)
[2016-10-22] MEDS: SYNTHROID 75 MCG PO SCH (09:00)
[2016-10-22] MEDS: Apresoline 25 MG TABLET PO SCH ×4 (09:00→21:47)
[2016-10-22] MEDS: ECOTRIN 81 MG PO SCH (09:00)
[2016-10-22] MEDS: VITAMIN D PO SCH (09:00)
[2016-10-22] MEDS: Cozaar 50 MG PO SCH (09:00)
[2016-10-22] MEDS: MAG-OX 400 PO SCH (09:00)
[2016-10-22] MEDS: Colace 100 MG PO SCH (09:00)
[2016-10-22] MEDS: ZOCOR 20MG PO SCH (09:00)
[2016-10-22] MEDS: Inderal 20 MG PO SCH ×2 (09:00→21:48)
[2016-10-22] MEDS: THERAGRAN MULTIVITAMIN PO SCH (09:01)
[2016-10-22] MEDS: Lyrica 25 MG PO SCH ×3 (09:01→21:48)
[2016-10-22] MEDS: ENOXAPARIN SODIUM SQ SCH (09:01)
[2016-10-22] MEDS: Lyrica 50MG PO SCH ×3 (09:01→21:48)
[2016-10-22] MEDS: solu-MEDROL 40 MG IV SCH ×2 (09:02→21:49)
[2016-10-22] MEDS: Vitamin C 500 MG PO SCH (09:02)
[2016-10-22] MEDS: LOTRIMIN CREAM 30 GM TP SCH ×2 (09:04→21:48)
[2016-10-22] MEDS: PYRIDIUM 200 MG PO SCH ×2 (09:05→21:49)
[2016-10-22] MEDS: Ativan 1 MG PO PRN (23:25)
[2016-10-22] MEDS: NovoLOG Insulin SQ PRN (23:25)
[2016-10-23] MEDS: PROVENTIL 2.5 MG/3 ML NEB IH SCH ×4 (01:03→19:47)
[2016-10-23] MEDS: Advair Hfa 115/21 Common canister IH SCH ×2 (06:41→19:51)
[2016-10-23] MEDS: LOTRIMIN CREAM 30 GM TP SCH ×2 (09:02→22:04)
--- NOTE | 2016-10-23 09:02 | HP ---
HISTORY OF PRESENT ILLNESS: This is an 81 y/o woman who was discharged from inpatient to [facility] last Sunday. She reports she continues to have increasing endurance. She has been able to walk around the halls more. She continues to need O2 at 4 liters nasal cannula and continues to have a cough and shortness of breath with exertion. She reports that she feels like she is improving, but doesn't want to go home and end up back in the hospital again like she did last time. She is not interested in going anywhere else for rehab besides the [facility] here. REVIEW OF SYSTEMS: She denies any constipation or diarrhea. No abdominal pain. No lower extremity edema. Her appetite has been good. No dysuria. No rashes. PAST MEDICAL HISTORY: She has extensive chronic obstructive pulmonary disease, history of tracheobronchomalacia which was diagnosed with a bronchoscopy 06/18/[address] [facility] [place], [place]. Anxiety, obstructive sleep apnea, tremor. She sees Dr. Dela Cruz for her chronic obstructive pulmonary disease and she is on home O2. PAST SURGICAL HISTORY: Cholecystectomy, hysterectomy, bilateral knee and bilateral hip replacements, cataract surgery, back surgery. SOCIAL HISTORY: She used to smoke and quit approximately 25 years ago. She is a and lives at home alone, although her family checks on her. FAMILY HISTORY: Noncontributory. CURRENT MEDICATIONS: Please see her current medication list. ALLERGIES: NO KNOWN ALLERGIES. PHYSICAL EXAMINATION: VITAL SIGNS: Temperature current 97.7, temperature maximum 98.1, heart rate 50-75, respiratory rate 18-20, O2 saturation 95-97% on 4 liters nasal cannula, BP 147-163/67-68. GENERAL: The patient is a pleasant talkative lady sitting up in bed in no acute distress. CVS: She has a regular rate and rhythm. No murmurs, gallops, or rubs are appreciated. LUNGS: Clear to auscultation bilaterally. No crackles or wheezes. She has a cough and some shortness of breath even at rest. EXTREMITIES: No clubbing, cyanosis, or edema. SKIN: Warm, dry, and intact. ASSESSMENT AND PLAN: 1. CHRONIC OBSTRUCTIVE PULMONARY DISEASE EXACERBATION. She has been on IV steroids. Today, I am going to change her to prednisone 20 mg PO daily in the morning. The sanforizer that did her bronchoscopy wanted her steroids to be limited to only those that were absolutely necessary. She had already completed a course of azithromycin during her inpatient stay. Today will be her last day of ceftriaxone. Will continue with rehab. She reports she has been walking tid, but she should be seen by the physical therapist today. 2. ANXIETY. Will continue her home medications. 3. HYPOXIA. Will continue with the O2 at 4 liters by nasal cannula.
[2016-10-23] MEDS: Apresoline 25 MG TABLET PO SCH ×4 (09:03→22:04)
[2016-10-23] MEDS: Colace 100 MG PO SCH (09:03)
[2016-10-23] MEDS: ENOXAPARIN SODIUM SQ SCH (09:03)
[2016-10-23] MEDS: Vitamin C 500 MG PO SCH (09:03)
[2016-10-23] MEDS: Inderal 20 MG PO SCH ×2 (09:04→22:04)
[2016-10-23] MEDS: Lyrica 50MG PO SCH ×3 (09:04→22:05)
[2016-10-23] MEDS: SYNTHROID 75 MCG PO SCH (09:04)
[2016-10-23] MEDS: Lyrica 25 MG PO SCH ×3 (09:04→22:05)
[2016-10-23] MEDS: MAG-OX 400 PO SCH (09:04)
[2016-10-23] MEDS: BUMEX 1 MG PO SCH ×2 (09:04→17:15)
[2016-10-23] MEDS: VITAMIN D PO SCH (09:04)
[2016-10-23] MEDS: PYRIDIUM 200 MG PO SCH ×2 (09:05→22:05)
[2016-10-23] MEDS: THERAGRAN MULTIVITAMIN PO SCH (09:05)
[2016-10-23] MEDS: ROCEPHIN 1 Gm-D5w 50 ml Bag** 50 ML IV SCH (09:06)
[2016-10-23] MEDS: ECOTRIN 81 MG PO SCH (09:06)
[2016-10-23] MEDS: Cozaar 50 MG PO SCH (09:06)
[2016-10-23] MEDS: DELTASONE 20 MG PO SCH (09:07)
[2016-10-23] MEDS: ZOCOR 20MG PO SCH (09:09)
[2016-10-23] MEDS: NovoLOG Insulin SQ PRN (17:16)
[2016-10-23] MEDS: Ativan 1 MG PO PRN (22:08)
[2016-10-24] MEDS: PROVENTIL 2.5 MG/3 ML NEB IH SCH ×3 (01:32→13:00)
[2016-10-24] MEDS: Tussionex Pennkinetic Susp PO PRN (01:42)
[2016-10-24] MEDS: Advair Hfa 115/21 Common canister IH SCH (07:00)
[2016-10-24 07:32] VITALS: BP 123/55
--- NOTE | 2016-10-24 08:39 | PCM.DCORD ---
- Discharge Discharge Date: 10/24/16 Disposition: Home, Self-Care Condition: Fair Prescriptions: New Prednisone 20 mg [Deltasone 20 mg] 20 mg PO DAILY #3 tablet Albuterol 2.5 mg/3 ml Neb [Proventil 2.5 mg/3 ml Neb] 2.5 mg IH Q6HRT # 0 neb Potassium Chloride 10 Meq Tab* [Klor Con 10 MEQ] 10 meq PO DAILY #30 tab Continue Hydralazine HCl 50 mg PO QID Aspirin 81 mg PO DAILY Ascorbic Acid 500 mg [Vitamin C 500 MG] 500 mg PO DAILY Cholecalciferol (Vitamin D3) [Vitamin D3] 1,000 unit PO DAILY Fluticasone/Vilanterol [Breo Ellipta 100-25 Mcg INH] 1 each IH DAILY Magnesium 250 mg PO DAILY Multivitamin W-Minerals/Lutein [Centrum Silver Tablet] 1 each PO DAILY Flaxseed Oil [Flax Seed Oil] 1,000 mg PO DAILY Pregabalin [Lyrica] 75 mg PO TID Atorvastatin Calcium [Lipitor 40Mg] 40 mg PO DAILY Levothyroxine Sodium 25 Mcg [Synthroid 25 Mcg] 75 mcg PO DAILY Propranolol HCl 40 mg PO BID Losartan Potassium 50 mg [Cozaar 50 MG] 50 mg PO DAILY Docusate Sodium 100 mg [Colace 100 MG] 100 mg PO DAILY Albuterol Sulfate [Proair Hfa] 8.5 gm IH QIDPRN PRN PRN Reason: resp Lorazepam 1 mg [Ativan 1 MG] 2 mg PO TIDPRN #90 tablet Bumetanide 1 mg [Bumex 1 mg] 1 mg PO BID #60 tablet Changed Hydrocodone/Chlorphen Polis [Hydrocodone-Chlorpheniram Susp] 5 ml PO BID PRN #60 ml PRN Reason: Cough Discontinued Potassium Chloride 10 Meq Tab* [Klor Con 10 MEQ] 10 meq PO TID Benzonatate [Tessalon Perle] 100 mg PO TID PRN PRN Reason: Cough Phenazopyridine HCl [Azo Standard] 97.5 mg PO BID Albuterol/Ipratropium 3ml Neb* [DUONEB 0.5-3 MG/3 ml Neb] 3 ml IH DAILY Follow up with: ALANNA YANG [Primary Care Provider] - 1 Week
--- NOTE | 2016-10-24 09:01 | DS ---
DISCHARGE DIAGNOSES: 1) CHRONIC OBSTRUCTIVE PULMONARY DISEASE. 2) ANXIETY. 3) HYPOXIA. 4) HYPERTENSION. DISCHARGE PHYSICAL EXAMINATION: VITALS: Temperature current 98.3F, temperature max 99.2F, heart rate 47 to 65, respiratory rate 18 to 20, blood pressure 100 to 123 over 55 to 59. Oxygen saturation 95 to 99% on 4 liters nasal cannula. GENERAL: The patient is a pleasant talkative lady sitting up in bed in no acute distress. CVS: She has a regular rate and rhythm. No murmurs, gallops or rubs are appreciated. CHEST: Clear to auscultation bilaterally. No crackles or wheezes. ABDOMEN: Soft, nontender, nondistended with normal bowel sounds. EXTREMITIES: No clubbing, cyanosis or edema. HOSPITAL COURSE: CHRONIC OBSTRUCTIVE PULMONARY DISEASE EXACERBATION: She finished out a course of IV steroids and was changed to prednisone 20 mg p.o. daily the day before discharge and did well with this. She had already completed a five day course of azithromycin and ten day course of ceftriaxone was completed yesterday so she will not need any antibiotics on discharge. She was continued on DuoNeb every six hours which will continue at home and Albuterol as needed. She also has an inhaled long acting beta agonist as well as inhaled steroid which we will continue. She will finish out three days of prednisone 20 mg daily, will continue with her oxygen, will ask for home health to evaluate her and do physical therapy with her at home to help increase her endurance. 2) ANXIETY: She was continued on her home anti-anxiety medication. She was asking for something to help her sleep. I have encouraged to take the lorazepam before bedtime and explained to her that I do not have anything stronger than that to help her sleep. 3) HYPOXIA: She was continued on oxygen and will need to continue her home oxygen at home. 4) HYPERTENSION: She was continued on her home antihypertensive at the time of her discharge. Her blood pressure looked good. DISCHARGE MEDICATIONS: Please see the discharge order. DISPOSITION: The patient was discharged to home with home health care.
[2016-10-24] MEDS: BUMEX 1 MG PO SCH (09:57)
[2016-10-24] MEDS: PYRIDIUM 200 MG PO SCH (09:57)
[2016-10-24] MEDS: MAG-OX 400 PO SCH (09:58)
[2016-10-24] MEDS: Cozaar 50 MG PO SCH (09:58)
[2016-10-24] MEDS: ZOCOR 20MG PO SCH (09:58)
[2016-10-24] MEDS: VITAMIN D PO SCH (09:58)
[2016-10-24] MEDS: Apresoline 25 MG TABLET PO SCH (09:58)
[2016-10-24] MEDS: Lyrica 50MG PO SCH (09:59)
[2016-10-24] MEDS: THERAGRAN MULTIVITAMIN PO SCH (09:59)
[2016-10-24] MEDS: ECOTRIN 81 MG PO SCH (09:59)
[2016-10-24] MEDS: Vitamin C 500 MG PO SCH (09:59)
[2016-10-24] MEDS: Lyrica 25 MG PO SCH (09:59)
[2016-10-24] MEDS: Colace 100 MG PO SCH (09:59)
[2016-10-24] MEDS: DELTASONE 20 MG PO SCH (09:59)
[2016-10-24] MEDS: SYNTHROID 75 MCG PO SCH (09:59)
[2016-10-24] MEDS: ROCEPHIN 1 Gm-D5w 50 ml Bag** 50 ML IV SCH (10:00)
[2016-10-24] MEDS: ENOXAPARIN SODIUM SQ SCH (10:00)
[2016-10-24] MEDS: Inderal 20 MG PO SCH (10:01)
[2016-10-24] MEDS: LOTRIMIN CREAM 30 GM TP SCH (10:01)
[2016-10-24 11:27] LABS: ANION GAP 9.5 MEQ/L (5-15); Carbon Dioxide 39.1 mEq/L (21-32); Potassium 4.1 mEq/L (3.5-5.1)
[2016-10-24 13:18] VITALS: PULSE 55; O2SAT 97
[2016-10-30] MEDS ORDERED: Aplisol ID SCH (10:00)
== END 2016-10-24 13:10 | disposition home health service (06) | DRG 192 ==
LOC: MED SURG 10:00
PROVIDERS: ADMIT Internal Medicine; ATTEND Internal Medicine
DX: J44.1 Chronic obstructive pulmonary disease with (acute) exacerbation (principal); F41.9 Anxiety disorder, unspecified; R09.02 Hypoxemia; I10 Essential (primary) hypertension; G47.33 Obstructive sleep apnea (adult) (pediatric); G47.30 Sleep apnea, unspecified; Z99.81 Dependence on supplemental oxygen; Z87.891 Personal history of nicotine dependence; Z79.899 Other long term (current) drug therapy
CPT/HCPCS: 36415; 80048; 82962; 94640; 94760; A9270; J0696; J1650; J2920

== ENCOUNTER 2016-10-30 21:04 | Inpatient (IN) | payer MEDICARE, OTHER ==
[2016-10-30] MEDS ORDERED: PROVENTIL 2.5 MG/3 ML NEB IH ONE ×2 (21:14→21:22)
[2016-10-30] MEDS ORDERED: ROCEPHIN 1 Gm-D5w 50 ml Bag** 50 ML IV ONE ×2 (21:14→21:29)
[2016-10-30] MEDS ORDERED: ZITHROMAX IV 500 MG*** 500 MG in Sodium Chloride 0.9% 250 ML 250 ML IV ONE (21:14)
[2016-10-30] MEDS ORDERED: Sodium Chloride 0.9% 1000 ML 1,000 ML IV SCH (21:15)
[2016-10-30] MEDS ORDERED: Robitussin AC Syrup Unit Dose Cup PO PRN (21:16)
--- NOTE | 2016-10-30 21:22 | ERPHSYRPT ---
- History of Present Illness Time Seen by Provider: 10/30/16 21:08 Source: patient, family (DAUGHTER) Exam Limitations: no limitations Patient Subjective Stated Complaint: "i got sob more today. i left here 3 days ago. i had pneumonia. it all started up again 2 days ago. i am coughing up yellow stuff" Triage Nursing Assessment: aox3, breathign rapid, able to speak in complete setences, skin pink cool dry, moving all extremities, lungs course, expitory wheezes noted through Physician History: FOR THE PAST 2 DAYS PT HAS HAD COUGH PRODUCTIVE OF YELLOW PHLEGM; TODAY DIAPHORESIS AND SHORTNESS OF AIR SINCE 0430. PT REPORTEDLY WAS HOSPITALIZED AT [facility] FOR 11 DAYS FOR PNEUMONIA AND RELEASED 5 DAYS AGO. PT DENIES ABDOMINAL PAIN , VOMITING, DIARRHEA; ADMITS TO HEADACHE AND MID BACK PAIN TODAY. Allergies/Adverse Reactions: No Known Allergies Allergy (Verified 10/30/16 21:06) Home Medications: Hydralazine HCl 50 mg PO QID 06/02/14 [History] Aspirin 81 mg PO DAILY 07/12/14 [History] Ascorbic Acid 500 mg [Vitamin C 500 MG] 500 mg PO DAILY 04/05/15 [History] Cholecalciferol (Vitamin D3) [Vitamin D3] 1,000 unit PO DAILY 04/05/15 [History] Fluticasone/Vilanterol [Breo Ellipta 100-25 Mcg INH] 1 each IH DAILY 04/05/15 [ History] Magnesium 250 mg PO DAILY 04/05/15 [History] Flaxseed Oil [Flax Seed Oil] 1,000 mg PO DAILY 06/14/15 [History] Multivitamin W-Minerals/Lutein [Centrum Silver Tablet] 1 each PO DAILY 06/14/15 [History] Pregabalin [Lyrica] 75 mg PO TID 06/14/15 [History] Atorvastatin Calcium [Lipitor 40Mg] 40 mg PO DAILY 04/15/16 [History] Levothyroxine Sodium 25 Mcg [Synthroid 25 Mcg] 75 mcg PO DAILY 08/06/16 [ History] Albuterol Sulfate [Proair Hfa] 8.5 gm IH QIDPRN PRN 10/14/16 [History] Docusate Sodium 100 mg [Colace 100 MG] 100 mg PO DAILY 10/14/16 [History] Losartan Potassium 50 mg [Cozaar 50 MG] 50 mg PO DAILY 10/14/16 [History] Propranolol HCl 40 mg PO BID 10/14/16 [History] Hx Tetanus, Diphtheria Vaccination/Date Given: Yes Hx Influenza Vaccination/Date Given: No Hx Pneumococcal Vaccination/Date Given: No - Review of Systems Respiratory: Cough, Dyspnea Musculoskeletal: Back Pain Neurological: Headache Endocrine: Excessive Sweating All Other Systems: Reviewed and Negative - Past Medical History Pertinent Past Medical History: Yes Neurological History: Peripheral Neuropathy ENT History: Cataracts Cardiac History: No Pertinent History Respiratory History: Bronchitis, COPD, Pneumonia, Sleep Apnea, Other Endocrine Medical History: No Pertinent History Musculoskeletal History: Arthritis GI Medical History: Hemorrhoids History: No Pertinent History Psycho-Social History: Anxiety, Depression Female Reproductive Disorders: Cervical Cancer Other Medical History: 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 tracheal stenosis - Past Surgical History Past Surgical History: Yes Neuro Surgical History: No Pertinent History Cardiac: No Pertinent History Respiratory: Other Gastrointestinal: Appendectomy, Cholecystectomy Genitourinary: No Pertinent History Musculoskeletal: Joint Replacement, Orthopedic Surgery Female Surgical History: Hysterectomy Other Surgical History: Bilateral hip and knee replacements. Arthritis in spine and had spinal surgery. recent tracheal stent placed for stenosis and removed, partial hyst, carpal tunnel - Social History Smoking Status: Former smoker How long have you smoked: 40 years Exposure to second hand smoke: No Drug Use: none Patient Lives Alone: No - Nursing Vital Signs Nursing Vital Signs: Initial Vital Signs Temperature 99.7 F Temperature Source Oral Pulse Rate 61 Respiratory Rate 22 Blood Pressure [] 157/66 Pain Intensity 1 - Physical Exam General Appearance: alert Eye Exam: PERRL/EOMI Ears, Nose, Throat Exam: hearing grossly normal, pharyngeal erythema Neck Exam: normal inspection Respiratory Exam: wheezing (MILD EXPIRATORY WHEEZING) Cardiovascular/Chest Exam: normal heart sounds Abdominal/Gastrointestinal Exam: soft, normal bowel sounds Extremity Exam: normal inspection Neurologic Exam: alert, cooperative Skin Exam: warm, dry SpO2 Interpretation: hypoxic SpO2: 86 Oxygen Delivery: Room Air - Course Nursing assessment & vital signs reviewed: Yes EKG Interpreted by Me: RATE (62), Sinus Rhythm, NORMAL AXIS, NORMAL INTERVALS - Radiology Exams Chest X-ray Interpretation: Interpreted by me (PNEUMONIA) Ordered Tests: Active Orders 24 hr Category Date Time Status Supervisor [place] Bucking STAT Care 10/30/16 21:14 Active EKG-ER Only STAT Care 10/30/16 21:14 Active IV Insertion STAT Care 10/30/16 21:14 Active Oxygen-ED Only NASAL CANNULA 4 lpm Care 10/30/16 21:14 Active Pulse Oximetry (ED) STAT Care 10/30/16 21:14 Active CHEST 1 VIEW (PORTABLE) Stat Exams 10/30/16 21:14 Taken AMYLASE Stat Lab 10/30/16 21:56 Completed ARTERIAL BLOOD GASES Urgent Lab 10/30/16 21:14 Completed BLOOD CULTURE Stat Lab 10/30/16 21:56 Received CBC W DIFF Stat Lab 10/30/16 21:56 Completed CMP Stat Lab 10/30/16 21:56 Completed CULTURE, THROAT Stat Lab 10/30/16 21:56 Received CULTURE,SPUTUM Stat Lab 10/30/16 21:14 Uncollected LIPASE Stat Lab 10/30/16 21:56 Completed MAGNESIUM Stat Lab 10/30/16 21:56 Completed Manual Differential NC Stat Lab 10/30/16 21:56 Completed [place] Screen Stat Lab 10/30/16 21:56 Completed NT PRO BNP Stat Lab 10/30/16 21:56 Completed STREP SCREEN-BETA A Stat Lab 10/30/16 21:56 Completed TROPONIN Stat Lab 10/30/16 21:56 Completed Respiratory Nebulizer STAT RT 10/30/16 21:15 Active Medication Summary Generic Name Dose Route Start Last Admin Trade Name Freq PRN Reason Stop Dose Admin Guaifenesin/Codeine Phosphate 10 ml 10/30/16 21:16 10/30/16 21:31 Robitussin Ac Syrup Unit Dose Cup PO 11/29/16 21:15 10 ml QIDP PRN Administration COUGH Sodium Chloride 1,000 mls @ 100 mls/hr 10/30/16 21:15 10/30/16 21:31 Sodium Chloride 0.9% 1000 Ml IV 11/29/16 21:14 100 mls/hr .Q10H SARITA Administration Discontinued Medications Generic Name Dose Route Start Last Admin Trade Name Freq PRN Reason Stop Dose Admin Albuterol Sulfate 2.5 mg 10/30/16 21:14 10/30/16 21:20 Proventil 2.5 Mg/3 Ml Neb IH 10/30/16 21:15 2.5 mg STAT ONE Administration Albuterol Sulfate Confirm 10/30/16 21:22 Proventil 2.5 Mg/3 Ml Neb Administered 10/30/16 21:23 Dose 2.5 mg IH .STK-MED ONE Guaifenesin/Codeine Phosphate Confirm 10/30/16 21:29 Robitussin Ac Syrup Unit Dose Cup Administered 10/30/16 21:30 Dose 10 ml .ROUTE .STK-MED ONE Azithromycin 500 mg/ Sodium 250 mls @ 125 mls/hr 10/30/16 21:14 10/30/16 22: 07 Chloride IV 10/30/16 23:13 125 mls/hr STAT ONE Administration Ceftriaxone Sodium/Dextrose 50 mls @ 100 mls/hr 10/30/16 21:14 10/30/16 21:32 Rocephin 1 Gm-D5w 50 Ml Bag IV 10/30/16 21:43 100 mls/hr STAT ONE Administration Azithromycin Confirm 10/30/16 21:29 Zithromax 500 Mg/ 250 Ml Nacl Premix Administered 10/30/16 21:30 Dose 250 mls @ ud IV .STK-MED ONE Sodium Chloride Confirm 10/30/16 21:29 Sodium Chloride 0.9% 1000 Ml Administered 10/30/16 21:30 Dose 1,000 mls @ ud .ROUTE .STK-MED ONE Ceftriaxone Sodium/Dextrose Confirm 10/30/16 21:29 Rocephin 1 Gm-D5w 50 Ml Bag Administered 10/30/16 21:30 Dose 50 mls @ ud IV .STK-MED ONE Lab/Rad Data: Laboratory Result Diagrams 10/30/16 21:56 10/30/16 21:56 Laboratory Results 10/30/16 10/30/16 10/30/16 Range/Units 21:56 21:56 21:56 WBC (4.0-10.5) K/mm3 RBC (4.1-5.4) M/mm3 Hgb (12.0-16.0) gm/dl Hct (35-47) % MCV (78-100) fl MCH (26-32) pg MCHC (32-36) g/dl RDW (11.5-14.0) % Plt Count (150-450) K/mm3 MPV (6-9.5) fl Segmented Neutrophils (36.0-66.0) % Lymphocytes (Manual) (24-44) % Monocytes (Manual) (0.0-12.0) % Differential Comment Platelet Estimate (NORMAL) Puncture Site pCO2 (35-45) mmHg pO2 (75-100) mmHg Base Excess (-2.0-2.0) O2 Saturation (94-100) g/dF ABG pH (7.35-7.45) ABG HCO3 (22-28) ABG O2 Sat (Measured) (95-100) % Leandro Test A-a Gradient a/A Ratio Hemoglobin Carboxyhemoglobin (0.0-6.9) % THgb Methemoglobin (1.4-1.5) % Potassium (3.5-5.1) Temperature C POC O2 Flow Rate % Sodium (136-145) mEq/L Chloride (98-107) mEq/L Carbon Dioxide (21-32) mEq/L Anion Gap (5-15) MEQ/L BUN (9-20) mg/dL Creatinine (0.55-1.30) mg/dl Estimated GFR ML/MIN Glucose (70-110) MG/DL Calcium (8.5-10.1) mg/dL Magnesium (1.8-2.4) mg/dL Total Bilirubin (0.2-1.0) mg/dL AST (15-37) U/L ALT (12-78) U/L Alkaline Phosphatase (46-116) U/L Troponin I (0.000-0.056) ng/ml NT-Pro-B Natriuret Pep (0-450) pg/ml Serum Total Protein (6.4-8.2) gm/dL Albumin (3.4-5.0) g/dL Amylase 32 (25-115) U/L Lipase 192 (73-393) U/L Monoscreen NEGATIVE (Negative) Influenza Type A Ag NEGATIVE (NEGATIVE) Influenza Type B Ag NEGATIVE (NEGATIVE) RSV (PCR) NEGATIVE (Negative) Streptococcus Screen (Negative) 10/30/16 10/30/16 10/30/16 Range/Units 21:56 21:56 21:56 WBC 11.5 H (4.0-10.5) K/mm3 RBC 3.79 L (4.1-5.4) M/mm3 Hgb 11.1 L (12.0-16.0) gm/dl Hct 35.8 (35-47) % MCV 94.5 (78-100) fl MCH 29.2 (26-32) pg MCHC 31.0 L (32-36) g/dl RDW 14.6 H (11.5-14.0) % Plt Count 116 L (150-450) K/mm3 MPV 11.9 H (6-9.5) fl Segmented Neutrophils 79 H (36.0-66.0) % Lymphocytes (Manual) 12 L (24-44) % Monocytes (Manual) 9 (0.0-12.0) % Differential Comment NORMAL Platelet Estimate NORMAL (NORMAL) Puncture Site pCO2 (35-45) mmHg pO2 (75-100) mmHg Base Excess (-2.0-2.0) O2 Saturation (94-100) g/dF ABG pH (7.35-7.45) ABG HCO3 (22-28) ABG O2 Sat (Measured) (95-100) % Leandro Test A-a Gradient a/A Ratio Hemoglobin Carboxyhemoglobin (0.0-6.9) % THgb Methemoglobin (1.4-1.5) % Potassium 4.5 (3.5-5.1) Temperature C POC O2 Flow Rate % Sodium 145 (136-145) mEq/L Chloride 105 (98-107) mEq/L Carbon Dioxide 33.4 H (21-32) mEq/L Anion Gap 10.7 (5-15) MEQ/L BUN 40 H (9-20) mg/dL Creatinine 1.56 H (0.55-1.30) mg/dl Estimated GFR 34 ML/MIN Glucose 138 H (70-110) MG/DL Calcium 9.1 (8.5-10.1) mg/dL Magnesium 2.1 (1.8-2.4) mg/dL Total Bilirubin 0.3 (0.2-1.0) mg/dL AST 21 (15-37) U/L ALT 30 (12-78) U/L Alkaline Phosphatase 56 (46-116) U/L Troponin I 0.036 (0.000-0.056) ng/ml NT-Pro-B Natriuret Pep 1273 H (0-450) pg/ml Serum Total Protein 6.2 L (6.4-8.2) gm/dL Albumin 3.1 L (3.4-5.0) g/dL Amylase (25-115) U/L Lipase (73-393) U/L Monoscreen (Negative) Influenza Type A Ag (NEGATIVE) Influenza Type B Ag (NEGATIVE) RSV (PCR) (Negative) Streptococcus Screen NEGATIVE (Negative) 10/30/16 Range/Units 21:14 WBC (4.0-10.5) K/mm3 RBC (4.1-5.4) M/mm3 Hgb (12.0-16.0) gm/dl Hct (35-47) % MCV (78-100) fl MCH (26-32) pg MCHC (32-36) g/dl RDW (11.5-14.0) % Plt Count (150-450) K/mm3 MPV (6-9.5) fl Segmented Neutrophils (36.0-66.0) % Lymphocytes (Manual) (24-44) % Monocytes (Manual) (0.0-12.0) % Differential Comment Platelet Estimate (NORMAL) Puncture Site RIGHT RADIAL pCO2 62 H* (35-45) mmHg pO2 94 (75-100) mmHg Base Excess 11.5 H (-2.0-2.0) O2 Saturation 95.9 (94-100) g/dF ABG pH 7.40 (7.35-7.45) ABG HCO3 38.4 H* (22-28) ABG O2 Sat (Measured) 97.1 (95-100) % Leandro Test YES A-a Gradient 85 a/A Ratio 0.53 Hemoglobin 11.0 Carboxyhemoglobin 0.3 (0.0-6.9) % THgb Methemoglobin 0.9 L (1.4-1.5) % Potassium 4.7 (3.5-5.1) Temperature 37.0 C POC O2 Flow Rate 36 % Sodium (136-145) mEq/L Chloride (98-107) mEq/L Carbon Dioxide (21-32) mEq/L Anion Gap (5-15) MEQ/L BUN (9-20) mg/dL Creatinine (0.55-1.30) mg/dl Estimated GFR ML/MIN Glucose (70-110) MG/DL Calcium (8.5-10.1) mg/dL Magnesium (1.8-2.4) mg/dL Total Bilirubin (0.2-1.0) mg/dL AST (15-37) U/L ALT (12-78) U/L Alkaline Phosphatase (46-116) U/L Troponin I (0.000-0.056) ng/ml NT-Pro-B Natriuret Pep (0-450) pg/ml Serum Total Protein (6.4-8.2) gm/dL Albumin (3.4-5.0) g/dL Amylase (25-115) U/L Lipase (73-393) U/L Monoscreen (Negative) Influenza Type A Ag (NEGATIVE) Influenza Type B Ag (NEGATIVE) RSV (PCR) (Negative) Streptococcus Screen (Negative) - Progress Discussed with : William (JOX - [id number]) - Departure Time of Disposition: 23:16 Departure Disposition: Observation Clinical Impression: PNEUMONIA, COPD, ARTHRITIS, PN, NEUROPATHY, ANXIETY, DEPRESSION, TRACHEAL STENOSIS Condition: Fair Critical Care Time: No Referrals: ALANNA YANG [Primary Care Provider] -
[2016-10-30] MEDS ORDERED: Zithromax 500 MG/ 250 ML NaCl Premix 250 ML IV ONE (21:29)
[2016-10-30] MEDS ORDERED: Robitussin AC Syrup Unit Dose Cup ONE (21:29)
[2016-10-30] MEDS ORDERED: Sodium Chloride 0.9% 1000 ML 1,000 ML ONE (21:29)
[2016-10-30 21:33] LABS: A-aADO2 85; ARTERIAL BLD GAS O2 SATURATION 97.1 % (95-100); ARTERIAL BLOOD GAS BASE EXCESS 11.5 (-2.0-2.0); ARTERIAL BLOOD GAS FIO2 36 %; ARTERIAL BLOOD GAS PO2 94 mmHg (75-100)
[2016-10-30 21:34] LABS: ALLEN TEST OK? YES
[2016-10-30 22:12] LABS: Mean Cell Volume 94.5 fl (78-100); Mean Platelet Volume 11.9 fl (6-9.5); Platelet Count 116 K/mm3 (150-450); Red Blood Count 3.79 M/mm3 (4.1-5.4); Red Cell Distribution Width 14.6 % (11.5-14.0); White Blood Count 11.5 K/mm3 (4.0-10.5)
[2016-10-30 22:20] LABS: Mean Corpuscular Hemoglobin 29.2 pg (26-32)
[2016-10-30 22:21] LABS: LIPASE 192 U/L (73-393)
[2016-10-30 22:30] LABS: ALBUMIN 3.1 g/dL (3.4-5.0); ANION GAP 10.7 MEQ/L (5-15); BILIRUBIN,TOTAL 0.3 mg/dL (0.2-1.0); Carbon Dioxide 33.4 mEq/L (21-32); MAGNESIUM 2.1 mg/dL (1.8-2.4); Potassium 4.5 mEq/L (3.5-5.1); TROPONIN 0.036 ng/ml (0.000-0.056); Total Protein 6.2 gm/dL (6.4-8.2)
[2016-10-30 22:58] LABS: Total Cells Counted 100
[2016-10-30 22:59] LABS: Platelet Estimate NORMAL (NORMAL)
[2016-10-31] MEDS ORDERED: PROVENTIL 2.5 MG/3 ML NEB IH PRN (00:02)
[2016-10-31] MEDS ORDERED: Phenergan 25 MG INJ IV PRN (00:02)
[2016-10-31] MEDS: Zosyn 3.375GM/100 Ml D5W 100 ML IV SCH ×2 (00:46→05:44)
[2016-10-31] MEDS: DUONEB 0.5-3 MG/3 ml Neb IH SCH ×6 (03:22→23:28)
[2016-10-31] MEDS: TYLENOL 325 MG PO PRN ×2 (05:13→15:36)
[2016-10-31 06:28] LABS: A-aADO2 38; ARTERIAL BLD GAS O2 SATURATION 98.3 % (95-100); ARTERIAL BLOOD GAS BASE EXCESS 5.3 (-2.0-2.0); ARTERIAL BLOOD GAS FIO2 36 %; ARTERIAL BLOOD GAS PO2 131 mmHg (75-100); ARTERIAL BLOOD GAS pH 7.29 (7.35-7.45)
[2016-10-31 06:29] LABS: ALLEN TEST OK? YES
[2016-10-31 06:42] LABS: Mean Cell Volume 94.5 fl (78-100); Platelet Count 133 K/mm3 (150-450); Red Blood Count 3.62 M/mm3 (4.1-5.4); Red Cell Distribution Width 14.3 % (11.5-14.0)
[2016-10-31 07:07] LABS: Mean Corpuscular Hemoglobin 29.2 pg (26-32)
[2016-10-31 07:18] LABS: ALBUMIN 2.9 g/dL (3.4-5.0); ANION GAP 11.8 MEQ/L (5-15); BILIRUBIN,TOTAL 0.2 mg/dL (0.2-1.0); Carbon Dioxide 30.9 mEq/L (21-32); Potassium 4.9 mEq/L (3.5-5.1); TROPONIN 0.031 ng/ml (0.000-0.056); Total Protein 6.1 gm/dL (6.4-8.2)
[2016-10-31 07:59] LABS: BAND 3 % (0.0-2.0); Platelet Estimate DECREASED (NORMAL); Total Cells Counted 100
[2016-10-31 08:50] LABS: A-aADO2 68; ARTERIAL BLD GAS O2 SATURATION 98.1 % (95-100); ARTERIAL BLOOD GAS BASE EXCESS 7.6 (-2.0-2.0); ARTERIAL BLOOD GAS FIO2 36 %; ARTERIAL BLOOD GAS PO2 102 mmHg (75-100); ARTERIAL BLOOD GAS pH 7.32 (7.35-7.45); BIPAP(E) 4; BIPAP(I) 12
[2016-10-31 08:51] LABS: ALLEN TEST OK? yes
--- NOTE | 2016-10-31 08:54 | XRAY ---
Indication: Short of breath. Cough. Comparison: October 14, 2016. Portable chest again hyperinflated with new subtle right base infiltrate/atelectasis. No consolidation or large effusion. Remaining heart and lungs unremarkable.
[2016-10-31] MEDS ORDERED: Tussionex Pennkinetic Susp PO PRN (09:56)
[2016-10-31] MEDS ORDERED: Ventolin Hfa MDI IH PRN (09:56)
[2016-10-31] MEDS ORDERED: LIPITOR 40MG PO SCH (10:00)
[2016-10-31] MEDS ORDERED: NON-FORMULARY ITEM (Pregabalin [Lyrica] 75 MG) PO SCH (10:00)
[2016-10-31] MEDS ORDERED: NON-FORMULARY ITEM (Multivitamin W-Minerals/Lutein [Centrum Silver Tablet] 1 EACH) PO SCH (10:00)
[2016-10-31] MEDS ORDERED: NON-FORMULARY ITEM (Cholecalciferol (Vitamin D3) [Vitamin D3] 1,000 UNIT) PO SCH (10:00)
[2016-10-31] MEDS ORDERED: NON-FORMULARY ITEM (Hydralazine Hcl [Hydralazine Hcl] 50 MG) PO SCH (10:00)
[2016-10-31] MEDS ORDERED: NON-FORMULARY ITEM (Aspirin [Aspirin] 81 MG) PO SCH (10:00)
[2016-10-31] MEDS ORDERED: NON-FORMULARY ITEM (Magnesium [Magnesium] 250 MG) PO SCH (10:00)
[2016-10-31] MEDS ORDERED: NON-FORMULARY ITEM (Propranolol Hcl [Propranolol Hcl] 40 MG) PO SCH (10:00)
[2016-10-31] MEDS ORDERED: SYNTHROID 25 MCG PO SCH (10:00)
--- NOTE | 2016-10-31 10:11 | HP ---
HISTORY OF PRESENT ILLNESS: This is an 81 year-old patient with a long history of chronic obstructive pulmonary disease as well as tracheomalacia who was just discharged from the hospital less than a week ago and doing well at that time. She presented with shortness of breath this morning. The family is not at the bedside. I was able to talk to her daughter on the phone briefly. The emergency room report said that she had increased work of breathing and was also concerned in the emergency room that her troponin was indeterminate. This morning the patient is unable to give any history or review of systems as she can barely open her eyes on command. She was placed on BiPAP at approximately 0530 hours this morning due to increased work of breathing and elevated pCO2. She normally wears oxygen at home 4 liters nasal cannula and has shortness of breath and cough as well as wheezing. REVIEW OF SYSTEMS: Unobtainable due to the patient's condition. PAST MEDICAL HISTORY: Extensive end-stage chronic obstructive pulmonary disease, tracheobronchomalacia that was diagnosed on bronchoscopy 06/18/2015 at [facility]. Anxiety, obstructive sleep apnea, tremor, hypoxia on home oxygen. PAST SURGICAL HISTORY: Cholecystectomy, hysterectomy, bilateral hip and knee replacement, cataract, back surgery. MEDICATIONS: Albuterol nebulizer every six hours as needed, Albuterol inhaler four times a day as needed. Vitamin C 500 mg daily, aspirin 81 mg daily, atorvastatin 40 mg daily, Bumex 1 mg p.o. b.i.d., vitamin D 1,000 units daily, docusate 100 mg daily, flaxseed oil 1,000 mg daily, Breo 1 puff daily, hydralazine 50 mg four times a day, hydrocodone/chlorpheniram 5 ml p.o. b.i.d. as needed, levothyroxine 75 mcg p.o. daily, lorazepam 2 mg p.o. t.i.d. PRN, losartan 50 mg p.o. daily, magnesium 250 mg p.o. daily, multivitamin 1 tablet p.o. daily, prednisone 20 mg tablet daily, Lyrica 75 mg p.o. t.i.d., propranolol 40 mg p.o. b.i.d. ALLERGIES: NKDA. SOCIAL HISTORY: She used to smoke but quit approximately 25 years ago. She is a and lives at home alone. The family checks on her often. FAMILY HISTORY: Noncontributory. PHYSICAL EXAMINATION: VITAL SIGNS: Temperature current 98.1F, temperature max 99.7F, heart rate 57 to 73, respiratory rate 20 to 26, blood pressure 150 to 130 over 54 to 74, weight 101 kg. Oxygen saturation 86% on room air and has 96% on BiPAP. GENERAL: The patient is lying in bed on BiPAP. She will open her eyes to loud voice. She does not squeeze my hand. She does not seem to be in any acute distress. CVS: She has a regular rate and rhythm. Heart sounds are distant due to the BiPAP machine and hard to hear. She has good pulses in her radials bilaterally. CHEST: Decreased breath sounds bilaterally on BiPAP. ABDOMEN: Soft, nontender, nondistended. EXTREMITIES: No clubbing, cyanosis or edema. SKIN: Warm, dry and intact. LABORATORY DATA AND TESTS: On admission white blood cell count was 11,500 and now it is 9,000. She does have a left shift, this morning 84% neutrophils, 3% bands. Blood gas at 0500 hours had pH of 7.29 and pCO2 of 70. Repeat blood gas with pH after being on BiPAP 7.3 and pCO2 of 69. Creatinine 1.44, albumin 2.9. Influenza A/B, respiratory syncytial virus, mono and strep were all were negative. The radiologist report on the chest x-ray read right base pneumonia. ASSESSMENT AND PLAN: 1) RIGHT LOWER LOBE PNEUMONIA: She was started on Zosyn as she was just here in the hospital and will continue with this. The pharmacist has readjusted the Zosyn. 2) ACUTE ON CHRONIC RESPIRATORY FAILURE: Will continue with BiPAP. Dr. Sammy Dela Cruz has been consulted. I have updated the family that she is not doing well and asked them to clarify if she would want to be put on a breathing machine or not. 3) HISTORY OF HYPERTENSION: Will continue her home antihypertensive.
[2016-10-31] MEDS: BUMEX 1 MG PO SCH ×2 (10:29→21:25)
[2016-10-31] MEDS: Cozaar 50 MG PO SCH (10:29)
[2016-10-31] MEDS: Colace 100 MG PO SCH (10:29)
[2016-10-31] MEDS: Ativan 1 MG PO SCH ×2 (10:29→21:26)
[2016-10-31] MEDS: Sodium Chloride 0.9% 1000 ML 1,000 ML IV SCH ×2 (10:32→22:48)
[2016-10-31] MEDS ORDERED: MEDICATION INTERVENTION MC PRN (10:44)
[2016-10-31] MEDS: ECOTRIN 81 MG PO SCH (11:27)
[2016-10-31] MEDS: THERAGRAN MULTIVITAMIN PO SCH (11:27)
[2016-10-31] MEDS: Lyrica 50MG PO SCH ×3 (11:27→21:26)
[2016-10-31] MEDS: VITAMIN D PO SCH (11:27)
[2016-10-31] MEDS: MAG-OX 400 PO SCH (11:27)
[2016-10-31] MEDS: Inderal 20 MG PO SCH ×2 (11:28→21:26)
[2016-10-31] MEDS: Apresoline 25 MG TABLET PO SCH ×4 (11:28→21:27)
[2016-10-31] MEDS: DELTASONE 20 MG PO SCH (11:28)
[2016-10-31] MEDS: ENOXAPARIN SODIUM SQ SCH (11:28)
[2016-10-31] MEDS: Lyrica 25 MG PO SCH ×3 (11:28→21:27)
[2016-10-31] MEDS: Zosyn 2.25 GM 2.25 GM in D5w 100ML Mini Bag 100 ML 100 ML IV SCH ×2 (11:33→18:31)
[2016-10-31] MEDS: Vitamin C 500 MG PO SCH (11:43)
[2016-10-31] MEDS ORDERED: ZOCOR 20MG PO SCH (22:00)
[2016-11-01] MEDS: Zosyn 2.25 GM 2.25 GM in D5w 100ML Mini Bag 100 ML 100 ML IV SCH ×4 (00:36→20:06)
[2016-11-01] MEDS: DUONEB 0.5-3 MG/3 ml Neb IH SCH ×6 (02:38→23:19)
[2016-11-01] MEDS: TYLENOL 325 MG PO PRN ×2 (02:51→06:57)
[2016-11-01] MEDS: Ativan 1 MG PO SCH (05:56)
[2016-11-01] MEDS: Advair Hfa 115/21 Common canister IH SCH ×2 (07:01→15:01)
[2016-11-01 07:29] LABS: A-aADO2 74; ARTERIAL BLD GAS O2 SATURATION 95.9 % (95-100); ARTERIAL BLOOD GAS BASE EXCESS 6.6 (-2.0-2.0); ARTERIAL BLOOD GAS FIO2 40 %; ARTERIAL BLOOD GAS PO2 82 mmHg (75-100); ARTERIAL BLOOD GAS pH 7.18 (7.35-7.45); BIPAP(E) 4; BIPAP(I) 12
[2016-11-01 07:30] LABS: ALLEN TEST OK? YES
[2016-11-01] MEDS ORDERED: solu-MEDROL 125 MG ONE (07:34)
[2016-11-01 07:44] LABS: Mean Cell Volume 95.8 fl (78-100); Mean Corpuscular Hemoglobin 28.6 pg (26-32); Mean Platelet Volume 11.1 fl (6-9.5); Platelet Count 173 K/mm3 (150-450); Red Blood Count 4.26 M/mm3 (4.1-5.4); Red Cell Distribution Width 14.7 % (11.5-14.0); White Blood Count 21.4 K/mm3 (4.0-10.5)
[2016-11-01] MEDS ORDERED: Versed 50 MG/ 10 Ml MDV*** 50 MG in Sodium Chloride 0.9% 250 ML 240 ML IV SCH (07:45)
[2016-11-01] MEDS ORDERED: VERSED 5 MG/5 ML IV ONE ×2 (08:00→08:05)
[2016-11-01 08:14] LABS: ALBUMIN 3.5 g/dL (3.4-5.0); BILIRUBIN,TOTAL 0.3 mg/dL (0.2-1.0); Carbon Dioxide 32.3 mEq/L (21-32); Potassium 4.9 mEq/L (3.5-5.1); TROPONIN 0.021 ng/ml (0.000-0.056); Total Protein 6.4 gm/dL (6.4-8.2)
[2016-11-01] MEDS ORDERED: DIPRIVAN 200 MG/20 ML IV ONE ×6 (08:15→12:45)
[2016-11-01] MEDS ORDERED: PHARMACY DOSING REQUIRED: VANCOMYCIN IV ONE (08:23)
[2016-11-01] MEDS ORDERED: PHARMACY DOSING REQUEST MC ONE (08:23)
[2016-11-01] MEDS: Dopamine 400 MG/D5W 250ML PREMIX 250 ML IV SCH (08:28)
--- NOTE | 2016-11-01 08:34 | XRAY ---
Indication: Endotracheal tube placement. Comparison: October 30, 2016. Portable chest demonstrates interval intubation with endotracheal tube tip 2.5 cm above the soco. Also new NG tube traverses the chest with the tip not in the [id number] but presumed in the stomach. Remaining cardiopulmonary structures unchanged.
[2016-11-01 09:16] LABS: A-aADO2 130; ARTERIAL BLD GAS O2 SATURATION 98.7 % (95-100); ARTERIAL BLD GAS TIDAL VOLUME 500 cc; ARTERIAL BLOOD GAS BASE EXCESS 8.8 (-2.0-2.0); ARTERIAL BLOOD GAS FIO2 70 %; ARTERIAL BLOOD GAS PO2 287 mmHg (75-100); ARTERIAL BLOOD GAS pH 7.35 (7.35-7.45)
[2016-11-01] MEDS: DIPRIVAN 100ML BOTTLE 100 ML IV SCH ×4 (09:38→23:26)
[2016-11-01] MEDS: VANCOCIN 1 GM VIAL*** 1 GM in Sodium Chloride 0.9% 250 ML 250 ML IV SCH (09:58)
[2016-11-01] MEDS ORDERED: FLAXSEED OIL 1000 MG PO SCH (10:00)
[2016-11-01] MEDS ORDERED: NON-FORMULARY ITEM (Fluticasone/Vilanterol [Breo Ellipta 100-25 Mcg Inh] 1 EACH) IH SCH (10:00)
[2016-11-01] MEDS ORDERED: SYNTHROID 75 MCG PO SCH (10:00)
[2016-11-01 10:30] LABS: BAND 3 % (0.0-2.0); Total Cells Counted 100
[2016-11-01 10:32] LABS: Platelet Estimate NORMAL (NORMAL)
[2016-11-01] MEDS: SUBLIMAZE 100 MCG/2 ML IV PRN ×4 (10:35→20:35)
[2016-11-01] MEDS: Apresoline 25 MG TABLET PO SCH (11:11)
[2016-11-01] MEDS: BUMEX 1 MG PO SCH (11:11)
[2016-11-01] MEDS: Colace 100 MG PO SCH (11:11)
[2016-11-01] MEDS: Lyrica 25 MG PO SCH (11:12)
[2016-11-01] MEDS: DELTASONE 20 MG PO SCH (11:12)
[2016-11-01] MEDS: Inderal 20 MG PO SCH (11:12)
[2016-11-01] MEDS: ECOTRIN 81 MG PO SCH (11:12)
[2016-11-01] MEDS: Cozaar 50 MG PO SCH (11:12)
[2016-11-01] MEDS: Lyrica 50MG PO SCH (11:13)
[2016-11-01] MEDS: MAG-OX 400 PO SCH (11:13)
[2016-11-01] MEDS: THERAGRAN MULTIVITAMIN PO SCH (11:13)
[2016-11-01] MEDS: VITAMIN D PO SCH (11:16)
[2016-11-01] MEDS: Vitamin C 500 MG PO SCH (11:16)
--- NOTE | 2016-11-01 13:09 | PCM.NOTE ---
Date and Time: 11/01/16 1302 Subjective Assessment: Her daughter reports she complained of chest pain this AM and was trying to get out of bed by herself. She called the patient's nurse and due to the patient's condition a code rapid was called. She had been on BIPAP all night her nurse had reported to me this AM and when she had a blood gas done during the code rapid, her pCO2 was high and her PH was low so she was intubated and transferred to the ICU. Her nurse reports she had a very high blood pressure and was given a dose of labatolol as well as propofol for sedation. Her blood pressure then went very low to 50/30. - Review of Systems All Other Systems: Unable due to condition Objective Exam General Appearance: other (sedated on ventilator) Neurologic Exam: other (sedated, on ventilator) Skin Exam: normal color, warm, dry, other (buising on abdomen) Respiratory Exam: other (equal breath sounds bilat; scattered wheezing, intubated on ventilator.) Cardiovascular Exam: regular rate/rhythm, No murmur, No friction rub, No gallop Gastrointestinal/Abdomen Exam: soft, normal bowel sounds Extremity Exam: other (no c/c/e) OBJECTIVE DATA Vital Signs: Vital Signs - 24 hr Temp Pulse Resp BP Pulse Ox 11/01/16 12:10 16 96 11/01/16 11:00 71 16 96 11/01/16 08:30 82 16 96 11/01/16 06:21 66 24 97 11/01/16 05:12 188/85 11/01/16 04:00 22 11/01/16 03:00 98.5 F 68 23 97 11/01/16 02:39 67 23 97 11/01/16 00:00 23 10/31/16 23:28 67 18 95 10/31/16 23:00 97.8 F 65 23 175/75 93 L 10/31/16 20:00 22 10/31/16 19:52 97.9 F 75 22 163/70 96 10/31/16 19:14 64 18 98 10/31/16 16:29 97.2 F 65 22 146/65 97 10/31/16 13:26 146/65 Oxygen-Last 24 hours O2 Percentage 50% O2 Percentage 5 Liters = 40% Pain Assessment - Last Documented Pain Intensity 6 Pain Scale Used 0-10 Pain Scale Intake and Output: Intake & Output 10/30/16 10/31/16 11/01/16 11/02/16 06:59 06:59 06:59 06:59 Weight 100.652 kg Lab Results: Lab Results-Last 24 Hours 11/01/16 11/01/16 11/01/16 Range/Units 07:22 07:24 07:41 WBC 21.4 H (4.0-10.5) K/mm3 RBC 4.26 (4.1-5.4) M/mm3 Hgb 12.2 (12.0-16.0) gm/dl Hct 40.8 (35-47) % MCV 95.8 (78-100) fl MCH 28.6 (26-32) pg MCHC 29.9 L (32-36) g/dl RDW 14.7 H (11.5-14.0) % Plt Count 173 (150-450) K/mm3 MPV 11.1 H (6-9.5) fl Segmented Neutrophils 59 (36.0-66.0) % Band Neutrophils 3 H (0.0-2.0) % Lymphocytes (Manual) 32 (24-44) % Monocytes (Manual) 6 (0.0-12.0) % Differential Comment NORMAL Platelet Estimate NORMAL (NORMAL) Puncture Site RIGHT RADIAL pCO2 103 H* (35-45) mmHg pO2 82 (75-100) mmHg Base Excess 6.6 H (-2.0-2.0) O2 Saturation 94.1 (94-100) g/dF ABG pH 7.18 L* (7.35-7.45) ABG HCO3 38.4 H* (22-28) ABG O2 Sat (Measured) 95.9 (95-100) % Leandro Test YES A-a Gradient 74 a/A Ratio 0.53 Hemoglobin 12.4 Carboxyhemoglobin 1.1 (0.0-6.9) % THgb Methemoglobin 0.8 L (1.4-1.5) % Potassium 4.8 (3.5-5.1) Temperature 37.0 C POC O2 Flow Rate 40 % Vent Mode BiPAP Vent Rate /MIN Tidal Volume cc PEEP cmH2O Inspiratory BiPAP 12 Expiratory BiPAP 4 Sodium (136-145) mEq/L Chloride (98-107) mEq/L Carbon Dioxide (21-32) mEq/L Anion Gap (5-15) MEQ/L BUN (9-20) mg/dL Creatinine (0.55-1.30) mg/dl Estimated GFR ML/MIN Glucose (70-110) MG/DL Lactic Acid 1.5 (0.4-2.0) Calcium (8.5-10.1) mg/dL Total Bilirubin (0.2-1.0) mg/dL AST (15-37) U/L ALT (12-78) U/L Alkaline Phosphatase (46-116) U/L Troponin I (0.000-0.056) ng/ml NT-Pro-B Natriuret Pep (0-450) pg/ml Serum Total Protein (6.4-8.2) gm/dL Albumin (3.4-5.0) g/dL 11/01/16 11/01/16 11/01/16 Range/Units 07:41 09:14 11:45 WBC (4.0-10.5) K/mm3 RBC (4.1-5.4) M/mm3 Hgb (12.0-16.0) gm/dl Hct (35-47) % MCV (78-100) fl MCH (26-32) pg MCHC (32-36) g/dl RDW (11.5-14.0) % Plt Count (150-450) K/mm3 MPV (6-9.5) fl Segmented Neutrophils (36.0-66.0) % Band Neutrophils (0.0-2.0) % Lymphocytes (Manual) (24-44) % Monocytes (Manual) (0.0-12.0) % Differential Comment Platelet Estimate (NORMAL) Puncture Site LEFT BRACHIAL pCO2 66 H* (35-45) mmHg pO2 287 H* (75-100) mmHg Base Excess 8.8 H (-2.0-2.0) O2 Saturation 96.8 (94-100) g/dF ABG pH 7.35 (7.35-7.45) ABG HCO3 36.4 H* (22-28) ABG O2 Sat (Measured) 98.7 (95-100) % Leandro Test NOT APPLICABLE A-a Gradient 130 a/A Ratio 0.69 Hemoglobin 11.1 Carboxyhemoglobin 0.7 (0.0-6.9) % THgb Methemoglobin 1.1 L (1.4-1.5) % Potassium 4.9 4.3 (3.5-5.1) Temperature 37.0 C POC O2 Flow Rate 70 % Vent Mode A/C Vent Rate 16 /MIN Tidal Volume 500 cc PEEP 3 cmH2O Inspiratory BiPAP Expiratory BiPAP Sodium 144 (136-145) mEq/L Chloride 107 (98-107) mEq/L Carbon Dioxide 32.3 H (21-32) mEq/L Anion Gap 10.0 (5-15) MEQ/L BUN 24 H (9-20) mg/dL Creatinine 1.29 (0.55-1.30) mg/dl Estimated GFR 42 ML/MIN Glucose 192 H (70-110) MG/DL Lactic Acid (0.4-2.0) Calcium 8.6 (8.5-10.1) mg/dL Total Bilirubin 0.3 (0.2-1.0) mg/dL AST 29 (15-37) U/L ALT 39 (12-78) U/L Alkaline Phosphatase 62 (46-116) U/L Troponin I 0.021 0.036 (0.000-0.056) ng/ml NT-Pro-B Natriuret Pep 1297 H (0-450) pg/ml Serum Total Protein 6.4 (6.4-8.2) gm/dL Albumin 3.5 (3.4-5.0) g/dL Radiology Exams: Radiology Procedures Category Date Time Status CHEST 1 VIEW (PORTABLE) Stat Exams 11/01/16 07:50 Completed Multi-Disciplinary Progress Notes: Multi-Disciplinary Progress Notes 11/01/16 11:29 Respiratory Note by Kacie Johns this am about 730 I was requested by Yoselin AGUSTIN to come patient room she had been alerted to patient having issues with breathing and chest discomfort. An abg was obtained and ekg obtained. abg were 7.18, 103,82,38,lactic 1.5 on the bipap. A code rapid was called while I was running the abg when I returned gave the results to Dr. Garcia and intubation was ordered. I contacted Alexis Marrufo to stand by due to patient history of tracheal stenosis. Pt was sedated and intubated per RT with no difficulties with a 7.0 ET tube. B/s were checked, ETCO2 color change noted saturation at 96%. Pt was moved to ICU and NG placed and xray done. ET tube at 2.5 cm above soco. Pt placed on vent at 500/16/70/ 3 treatment was given at 830 in line and abg were redrawn at 915 results 7.35/66 /287/36/ fio2 on vent was decreased to 50%. Dr. Alessandra Dela Cruz was updated on patient status and gave order for routine vent sedation orders. ETCO2 monitor was placed on patient after being placed on vent and correlating with abg. Will continue to monitor and keep dr. Thomas and Dr. Dela Cruz up date. kaylening Initialized on 11/01/16 11:29 - END OF NOTE Assessment/Plan (1) Acute on chronic respiratory failure with hypercapnia Current Visit: Yes Status: Acute Assessment & Plan: Patient was intubated this AM during a code rapid by the ER physician. Pulmonolgist, Dr. Jack Dela Cruz, called and updated after I saw her this AM. I updated her 2 daughters and son. Continue with ventilation. I expanded her IV antibiotic coverage to include vancomycin to cover for MRSA and also levofloxacin to cover for Pseudomonas. She has already been on Zosyn since her admission. Given her underlying chronic copd and tracheomalacia, her overall prognosis is poor and guarded. Over 70 minutes was spent in care of this patient. Code(s): J96.22 - ACUTE AND CHRONIC RESPIRATORY FAILURE WITH HYPERCAPNIA (2) Acute exacerbation of chronic obstructive pulmonary disease (COPD) Current Visit: No Status: Acute Code(s): J44.1 - CHRONIC OBSTRUCTIVE PULMONARY DISEASE W (ACUTE) EXACERBATION (3) Tracheomalacia, acquired Current Visit: Yes Status: Acute Code(s): J39.8 - OTHER SPECIFIED DISEASES OF UPPER RESPIRATORY TRACT (4) Hypotension Current Visit: Yes Status: Acute Qualifiers: Hypotension type: hypotension due to drug Qualified Code(s): I95.2 - Hypotension due to drugs Assessment & Plan: Most likely due to the medications she was given for her hypertension and sedation for the intubation. I attempted to place an arterial line in her left radial artery. This was done in a sterile manner but was not successful. I did received blood flow back and inserted the guide wire but when the catheter was placed over the guide wire and guide wire was removed, there was no blood flow. The catheter was removed and pressure held for at least five minutes. There were no complications from the procedure. Dopamine was started first at 10 mcg/ kg/min and then increased to 20. A 500 mL normal saline bolus was given also and her blood pressure has come back up. Code(s): I95.9 - HYPOTENSION, UNSPECIFIED (5) Chest pain Current Visit: Yes Status: Acute Assessment & Plan: Troponin checked during code rapid and repeat checked about 4 hours latter. Will check one more. EKG without any changes. Code(s): R07.9 - CHEST PAIN, UNSPECIFIED (6) Hypertension Current Visit: Yes Status: Acute Assessment & Plan: She has had underlying hypertension and a very high blood pressure during the code rapid which is why labatolol was given by the ER physician. Code(s): I10 - ESSENTIAL (PRIMARY) HYPERTENSION
--- NOTE | 2016-11-01 13:44 | XRAY ---
Indication: Central line placement. Comparison: Taken earlier in the day. Portable chest demonstrates new right internal jugular central venous access catheter with the tip projecting over the SVC. No pneumothorax. Remaining chest including endotracheal tube and NG tube unchanged.
[2016-11-01] MEDS: LEVOFLOXACIN 750MG/150ML D5W 150 ML IV SCH (14:59)
--- NOTE | 2016-11-01 15:01 | CONS ---
CONSULT DATE: 11/01/2016 REASON FOR CONSULTATION: Respiratory failure, weight management. HISTORY: Harmony Stevens is an 81 year-old woman known to me with history of chronic obstructive pulmonary disease and severe tracheomalacia status post tracheal stent was placed and removed subsequently, was in her usual state of health prior to admission. The patient started experiencing increasing cough, shortness of breath and was seen in the emergency room at [facility]. The patient was admitted to medical floor where she was treated with BiPAP. The patient had a rapid response called early this morning when she had significant respiratory difficulty. The patient also reported nonspecific chest pain with radiation. In view of this an arterial blood gas was performed that showed worsening hypercapnic respiratory failure. The patient was intubated. Post-intubation course has been complicated by hypotension requiring fluids and pressors now which are currently being weaned. She is now currently sedated and appears significantly comfortable. PAST MEDICAL HISTORY: Positive for chronic obstructive pulmonary disease, chronic bronchitis, anxiety disorder, osteoarthritis, obstructive sleep apnea and tremors. PAST SURGICAL HISTORY: She had cholecystectomy, hysterectomy, bilateral hip and knees replacement, cataract and back surgery. PERSONAL AND SOCIAL HISTORY: She is a former smoker. MEDICATIONS: Home medications are reviewed. ALLERGIES: NKDA. PHYSICAL EXAMINATION: This is an elderly woman who is intubated, sedated. The patient is afebrile. Heart rate 73, blood pressure 136/60. Saturating 98%. HEENT: Normocephalic. Pupils are reactive. Oral exam unremarkable. NECK: Supple. CVS: First and second heart sounds are normal, regular, rhythmic. RESPIRATORY: Shows diminished breath sounds, bilateral rhonchi are heard. ABDOMEN: Soft. EXTREMITIES: Trace edema. Scars from previous surgery of knee replacements are seen. LABORATORY DATA AND TESTS: From yesterday white blood cell count 9, hemoglobin 10.6, hematocrit 34, PLT 133,000. Sodium 144, potassium 4.9, chloride 106, bicarb 31, glucose 317, BUN 32, creatinine 1.0. Albumin 2.9. ABG's reviewed. Chest x-ray noted. ASSESSMENT: This is an 81 year old woman with: 1) Long standing history of pulmonary problems admitted with acute hypercapnic and chronic hypoxic respiratory failure. 2) Chronic obstructive pulmonary disease with acute exacerbation. 3) Acute bronchitis; rule out bronchopneumonia. 4) Hypotension probably secondary to mechanical ventilation. 5) Comorbidities listed above. RECOMMENDATIONS: 1) Continue mechanical ventilator. 2) Will rest completely for 48 hours until the patient's gas exchange improves and ventilation improves as well. 3) Continue IV antibiotics, steroids. 4) Bronchodilators. 5) Plavix coverage. 6) Deep venous thrombosis prophylaxis. 7) Continue other supportive care, wean pressors. Keeping systolic over 110. Further recommendations with clinical improvement. The patient's prognosis remains guarded. Weaning will be challenging to say the least and this was discussed at length with family at bedside. Thank you for allowing me to participate in the care of Miss Stevens.
[2016-11-01] MEDS: ENOXAPARIN SODIUM SQ SCH (15:29)
[2016-11-01] MEDS: NovoLOG Insulin SQ PRN (15:50)
[2016-11-01] MEDS: Sodium Chloride 0.9% 1000 ML 1,000 ML IV SCH (17:08)
[2016-11-01] MEDS: Lubrifresh P.M. 3.5 gm Ointment OP SCH ×2 (18:15→22:30)
[2016-11-01] MEDS: Pepcid 20 MG VIAL IV SCH (20:40)
[2016-11-01] MEDS: PERIDEX PO SCH (22:30)
[2016-11-02] MEDS ORDERED: Sodium Chloride 0.9% 10 ML FLUSH Syringe PICC PRN (01:08)
[2016-11-02] MEDS: Zosyn 2.25 GM 2.25 GM in D5w 100ML Mini Bag 100 ML 100 ML IV SCH ×5 (01:44→23:38)
[2016-11-02] MEDS: SUBLIMAZE 100 MCG/2 ML IV PRN ×9 (02:24→23:41)
[2016-11-02] MEDS: Sodium Chloride 0.9% 1000 ML 1,000 ML IV SCH (02:44)
[2016-11-02] MEDS: DUONEB 0.5-3 MG/3 ml Neb IH SCH ×6 (03:10→23:33)
[2016-11-02] MEDS: DIPRIVAN 100ML BOTTLE 100 ML IV SCH ×5 (04:41→21:10)
[2016-11-02 05:45] LABS: Mean Cell Volume 95.2 fl (78-100); Mean Corpuscular Hemoglobin 28.6 pg (26-32); Mean Platelet Volume 11.3 fl (6-9.5); Platelet Count 109 K/mm3 (150-450); Red Blood Count 3.11 M/mm3 (4.1-5.4); Red Cell Distribution Width 14.6 % (11.5-14.0); White Blood Count 7.3 K/mm3 (4.0-10.5)
[2016-11-02 06:07] LABS: ALBUMIN 2.4 g/dL (3.4-5.0); ANION GAP 8.2 MEQ/L (5-15); BILIRUBIN,TOTAL 0.2 mg/dL (0.2-1.0); Carbon Dioxide 31.1 mEq/L (21-32); Potassium 4.3 mEq/L (3.5-5.1); Total Protein 5.1 gm/dL (6.4-8.2)
[2016-11-02 06:14] LABS: A-aADO2 83; ARTERIAL BLD GAS O2 SATURATION 98.5 % (95-100); ARTERIAL BLD GAS TIDAL VOLUME 500 cc; ARTERIAL BLOOD GAS BASE EXCESS 7.3 (-2.0-2.0); ARTERIAL BLOOD GAS FIO2 50 %; ARTERIAL BLOOD GAS PO2 212 mmHg (75-100); ARTERIAL BLOOD GAS pH 7.43 (7.35-7.45)
--- NOTE | 2016-11-02 08:24 | PCM.NOTE ---
Date and Time: 11/02/16818 Subjective Assessment: Patient is sedated and on the ventilator. Her family has been here but just stepped out. Dr. Dela Cruz saw her and I appreciate his help. She had an elevated troponin yesterday evening and I asked them to call studio artist, Dr. Servin, and to also update Dr. Dela Cruz. - Review of Systems All Other Systems: Unable due to condition Objective Exam General Appearance: other (sedated and on ventilator) Neurologic Exam: other (sedated on ventilator) Skin Exam: normal color, warm, dry, No rash Respiratory Exam: wheezing (few scattered wheezes, no crackles, equal breath sounds), other (intubated) Cardiovascular Exam: regular rate/rhythm, normal heart sounds, No murmur, No friction rub, No gallop Gastrointestinal/Abdomen Exam: soft, normal bowel sounds, No tenderness, No distention, No mass Extremity Exam: other (no c/c/e) OBJECTIVE DATA Vital Signs: Vital Signs - 24 hr Temp Pulse Resp BP Pulse Ox 11/02/16 07:00 50 L 16 102/41 100 11/02/16 06:00 57 L 18 155/60 100 11/02/16 05:55 54 L 16 99 11/02/16 05:00 46 L 16 122/46 99 11/02/16 04:00 96.5 F 54 L 16 138/47 100 11/02/16 03:00 46 L 16 106/37 100 11/02/16 02:00 60 19 153/61 98 11/02/16 01:00 55 L 18 137/58 99 11/02/16 00:00 96.9 F 49 L 16 158/62 98 11/01/16 23:00 46 L 16 140/57 98 11/01/16 22:00 16 L 16 152/62 53 L 11/01/16 21:00 50 L 100 H 168/70 16 L 11/01/16 20:00 97.2 F 62 18 166/77 100 11/01/16 19:32 51 L 16 98 11/01/16 19:00 97.2 F 51 L 16 139/61 99 11/01/16 18:00 61 16 106/53 98 11/01/16 17:00 59 L 17 120/61 98 11/01/16 16:00 63 16 118/53 98 11/01/16 15:00 67 16 143/56 98 11/01/16 14:00 61 16 143/59 98 11/01/16 13:00 64 16 152/67 99 11/01/16 12:10 16 96 11/01/16 12:00 97.5 F 70 16 147/62 97 11/01/16 11:00 66 16 128/51 98 11/01/16 10:00 72 16 114/56 99 11/01/16 09:00 64 18 116/46 99 11/01/16 08:30 82 16 96 Oxygen-Last 24 hours O2 Percentage 50% O2 Percentage 50% O2 Percentage 50% O2 Percentage 50% O2 Percentage 50% O2 Percentage 50% O2 Percentage 50% O2 Percentage 50% O2 Percentage 50% O2 Percentage 50% O2 Percentage 50% O2 Percentage 50% O2 Percentage 50% Pain Assessment - Last Documented Pain Intensity 4 Pain Scale Used FLACC Intake and Output: Intake & Output 10/31/16 11/01/16 11/02/16 11/03/16 06:59 06:59 06:59 06:59 Intake Total 4321 Output Total 1700 Balance 2621 Weight 100.652 kg 100.698 kg Lab Results: Accuchecks Date 11/02/16 Date 11/01/16 Time 04:00 Accucheck Value: 166 Accucheck Value: 177 Accucheck Value: 226 Lab Results-Last 24 Hours 11/01/16 11/01/16 11/01/16 Range/Units 07:24 07:41 09:14 WBC 21.4 H (4.0-10.5) K/mm3 RBC 4.26 (4.1-5.4) M/mm3 Hgb 12.2 (12.0-16.0) gm/dl Hct 40.8 (35-47) % MCV 95.8 (78-100) fl MCH 28.6 (26-32) pg MCHC 29.9 L (32-36) g/dl RDW 14.7 H (11.5-14.0) % Plt Count 173 (150-450) K/mm3 MPV 11.1 H (6-9.5) fl Segmented Neutrophils 59 (36.0-66.0) % Band Neutrophils 3 H (0.0-2.0) % Lymphocytes (Manual) 32 (24-44) % Monocytes (Manual) 6 (0.0-12.0) % Differential Comment NORMAL Platelet Estimate NORMAL (NORMAL) Puncture Site LEFT BRACHIAL pCO2 66 H* (35-45) mmHg pO2 287 H* (75-100) mmHg Base Excess 8.8 H (-2.0-2.0) O2 Saturation 96.8 (94-100) g/dF ABG pH 7.35 (7.35-7.45) ABG HCO3 36.4 H* (22-28) ABG O2 Sat (Measured) 98.7 (95-100) % Leandro Test NOT APPLICABLE A-a Gradient 130 a/A Ratio 0.69 Hemoglobin 11.1 Carboxyhemoglobin 0.7 (0.0-6.9) % THgb Methemoglobin 1.1 L (1.4-1.5) % Potassium 4.3 (3.5-5.1) Temperature 37.0 C POC O2 Flow Rate 70 % Vent Mode A/C Vent Rate 16 /MIN Tidal Volume 500 cc PEEP 3 cmH2O Sodium (136-145) mEq/L Chloride (98-107) mEq/L Carbon Dioxide (21-32) mEq/L Anion Gap (5-15) MEQ/L BUN (9-20) mg/dL Creatinine (0.55-1.30) mg/dl Estimated GFR ML/MIN Glucose (70-110) MG/DL Lactic Acid 1.5 (0.4-2.0) Calcium (8.5-10.1) mg/dL Total Bilirubin (0.2-1.0) mg/dL AST (15-37) U/L ALT (12-78) U/L Alkaline Phosphatase (46-116) U/L Troponin I (0.000-0.056) ng/ml Serum Total Protein (6.4-8.2) gm/dL Albumin (3.4-5.0) g/dL 11/01/16 11/01/16 11/02/16 Range/Units 11:45 17:06 05:20 WBC 7.3 (4.0-10.5) K/mm3 RBC 3.11 L (4.1-5.4) M/mm3 Hgb 8.9 L (12.0-16.0) gm/dl Hct 29.6 L (35-47) % MCV 95.2 (78-100) fl MCH 28.6 (26-32) pg MCHC 30.1 L (32-36) g/dl RDW 14.6 H (11.5-14.0) % Plt Count 109 L (150-450) K/mm3 MPV 11.3 H (6-9.5) fl Segmented Neutrophils (36.0-66.0) % Band Neutrophils (0.0-2.0) % Lymphocytes (Manual) (24-44) % Monocytes (Manual) (0.0-12.0) % Differential Comment Platelet Estimate (NORMAL) Puncture Site pCO2 (35-45) mmHg pO2 (75-100) mmHg Base Excess (-2.0-2.0) O2 Saturation (94-100) g/dF ABG pH (7.35-7.45) ABG HCO3 (22-28) ABG O2 Sat (Measured) (95-100) % Leandro Test A-a Gradient a/A Ratio Hemoglobin Carboxyhemoglobin (0.0-6.9) % THgb Methemoglobin (1.4-1.5) % Potassium (3.5-5.1) Temperature C POC O2 Flow Rate % Vent Mode Vent Rate /MIN Tidal Volume cc PEEP cmH2O Sodium (136-145) mEq/L Chloride (98-107) mEq/L Carbon Dioxide (21-32) mEq/L Anion Gap (5-15) MEQ/L BUN (9-20) mg/dL Creatinine (0.55-1.30) mg/dl Estimated GFR ML/MIN Glucose (70-110) MG/DL Lactic Acid (0.4-2.0) Calcium (8.5-10.1) mg/dL Total Bilirubin (0.2-1.0) mg/dL AST (15-37) U/L ALT (12-78) U/L Alkaline Phosphatase (46-116) U/L Troponin I 0.036 0.113 H* (0.000-0.056) ng/ml Serum Total Protein (6.4-8.2) gm/dL Albumin (3.4-5.0) g/dL 11/02/16 11/02/16 Range/Units 05:20 05:30 WBC (4.0-10.5) K/mm3 RBC (4.1-5.4) M/mm3 Hgb (12.0-16.0) gm/dl Hct (35-47) % MCV (78-100) fl MCH (26-32) pg MCHC (32-36) g/dl RDW (11.5-14.0) % Plt Count (150-450) K/mm3 MPV (6-9.5) fl Segmented Neutrophils (36.0-66.0) % Band Neutrophils (0.0-2.0) % Lymphocytes (Manual) (24-44) % Monocytes (Manual) (0.0-12.0) % Differential Comment Platelet Estimate (NORMAL) Puncture Site RIGHT RADIAL pCO2 49 H (35-45) mmHg pO2 212 H* (75-100) mmHg Base Excess 7.3 H (-2.0-2.0) O2 Saturation 96.1 (94-100) g/dF ABG pH 7.43 (7.35-7.45) ABG HCO3 32.5 H* (22-28) ABG O2 Sat (Measured) 98.5 (95-100) % Leandro Test NOT APPLICABLE A-a Gradient 83 a/A Ratio 0.72 Hemoglobin 9.2 Carboxyhemoglobin 1.6 (0.0-6.9) % THgb Methemoglobin 0.8 L (1.4-1.5) % Potassium 4.3 4.3 (3.5-5.1) Temperature 37.0 C POC O2 Flow Rate 50 % Vent Mode A/C Vent Rate /MIN Tidal Volume 500 cc PEEP 3 cmH2O Sodium 147 H (136-145) mEq/L Chloride 112 H (98-107) mEq/L Carbon Dioxide 31.1 (21-32) mEq/L Anion Gap 8.2 (5-15) MEQ/L BUN 21 H (9-20) mg/dL Creatinine 0.96 (0.55-1.30) mg/dl Estimated GFR 59 ML/MIN Glucose 163 H (70-110) MG/DL Lactic Acid (0.4-2.0) Calcium 8.0 L (8.5-10.1) mg/dL Total Bilirubin 0.2 (0.2-1.0) mg/dL AST 26 (15-37) U/L ALT 43 (12-78) U/L Alkaline Phosphatase 48 (46-116) U/L Troponin I (0.000-0.056) ng/ml Serum Total Protein 5.1 L (6.4-8.2) gm/dL Albumin 2.4 L (3.4-5.0) g/dL Radiology Exams: Radiology Procedures Category Date Time Status CHEST 1 VIEW (PORTABLE) DAILY Exams 11/02/16 06:00 Taken CHEST 1 VIEW (PORTABLE) DAILY Exams 11/03/16 06:00 Ordered CHEST 1 VIEW (PORTABLE) DAILY Exams 11/04/16 06:00 Ordered CHEST 1 VIEW (PORTABLE) Stat Exams 11/01/16 07:50 Completed CHEST 1 VIEW (PORTABLE) Stat Exams 11/01/16 13:14 Completed Multi-Disciplinary Progress Notes: Multi-Disciplinary Progress Notes 11/01/16 11:29 Respiratory Note by Kacie Johns this am about 730 I was requested by Yoselin AGUSTIN to come patient room she had been alerted to patient having issues with breathing and chest discomfort. An abg was obtained and ekg obtained. abg were 7.18, 103,82,38,lactic 1.5 on the bipap. A code rapid was called while I was running the abg when I returned gave the results to Dr. Garcia and intubation was ordered. I contacted Alexisjosselin Marrufo to stand by due to patient history of tracheal stenosis. Pt was sedated and intubated per RT with no difficulties with a 7.0 ET tube. B/s were checked, ETCO2 color change noted saturation at 96%. Pt was moved to ICU and NG placed and xray done. ET tube at 2.5 cm above soco. Pt placed on vent at 500/16/70/ 3 treatment was given at 830 in line and abg were redrawn at 915 results 7.35/66 /287/36/ fio2 on vent was decreased to 50%. Dr. Alessandra Dela Cruz was updated on patient status and gave order for routine vent sedation orders. ETCO2 monitor was placed on patient after being placed on vent and correlating with abg. Will continue to monitor and keep dr. Thomas and Dr. Dela Cruz up date. sperhing Initialized on 11/01/16 11:29 - END OF NOTE Assessment/Plan (1) Acute on chronic respiratory failure with hypercapnia Current Visit: Yes Status: Acute Assessment & Plan: Continue with ventilation per Dr. Jack Dela Cruz. She is on broad spectrum antibiotic coverage now. Her WBC count is down significantly this AM. She had been on oral steroids so I started some IV steroids today. Code(s): J96.22 - ACUTE AND CHRONIC RESPIRATORY FAILURE WITH HYPERCAPNIA (2) Acute exacerbation of chronic obstructive pulmonary disease (COPD) Current Visit: No Status: Acute Code(s): J44.1 - CHRONIC OBSTRUCTIVE PULMONARY DISEASE W (ACUTE) EXACERBATION (3) Tracheomalacia, acquired Current Visit: Yes Status: Acute Code(s): J39.8 - OTHER SPECIFIED DISEASES OF UPPER RESPIRATORY TRACT (4) Hypotension Current Visit: Yes Status: Resolved Qualifiers: Hypotension type: hypotension due to drug Qualified Code(s): I95.2 - Hypotension due to drugs Assessment & Plan: Resolved. Code(s): I95.9 - HYPOTENSION, UNSPECIFIED (5) Chest pain Current Visit: Yes Status: Acute Assessment & Plan: Elevated troponin. Traffic Signal Mechanic, Dr. Servin, consulted. EKG with sinus bradycardia with 1st degree AV block. Code(s): R07.9 - CHEST PAIN, UNSPECIFIED
--- NOTE | 2016-11-02 08:35 | XRAY ---
Indication: Patient on ventilator. Comparison: November 01, 2016. Portable chest unchanged and remains clear with right jugular central venous access catheter, endotracheal tube, and NG tube in situ. Heart and mediastinal structures stable and within normal limits. No new/acute findings.
[2016-11-02] MEDS: Pepcid 20 MG VIAL IV SCH ×2 (10:07→20:39)
[2016-11-02] MEDS: ENOXAPARIN SODIUM SQ SCH (10:07)
[2016-11-02] MEDS: Dopamine 400 MG/D5W 250ML PREMIX 250 ML IV SCH (10:17)
[2016-11-02] MEDS: solu-MEDROL 125 MG IV SCH ×3 (10:22→21:02)
[2016-11-02] MEDS: Lubrifresh P.M. 3.5 gm Ointment OP SCH ×2 (10:27→20:44)
[2016-11-02] MEDS: VANCOCIN 1 GM VIAL*** 1 GM in Sodium Chloride 0.9% 250 ML 250 ML IV SCH (10:27)
[2016-11-02] MEDS: PERIDEX PO SCH ×2 (10:28→20:48)
[2016-11-02] MEDS: Dextrose 5% -0.45 NaCl 1000 ML 1,000 ML IV SCH ×2 (12:23→21:10)
[2016-11-02] MEDS: NovoLOG Insulin SQ PRN ×2 (18:05→22:13)
[2016-11-03] MEDS ORDERED: Lasix 20 MG/2 ML IV ONE (00:20)
[2016-11-03] MEDS: APRESOLINE 20 MG/ML INJ IV PRN ×2 (01:12→08:14)
[2016-11-03] MEDS: DIPRIVAN 100ML BOTTLE 100 ML IV SCH ×6 (01:20→22:16)
[2016-11-03] MEDS: SUBLIMAZE 100 MCG/2 ML IV PRN ×9 (01:39→22:30)
[2016-11-03] MEDS: DUONEB 0.5-3 MG/3 ml Neb IH SCH ×6 (03:31→23:12)
[2016-11-03] MEDS: NovoLOG Insulin SQ PRN ×3 (04:56→16:28)
[2016-11-03 05:30] LABS: A-aADO2 64; ARTERIAL BLD GAS O2 SATURATION 98.4 % (95-100); ARTERIAL BLD GAS TIDAL VOLUME 500 cc; ARTERIAL BLOOD GAS BASE EXCESS 5.6 (-2.0-2.0); ARTERIAL BLOOD GAS FIO2 40 %; ARTERIAL BLOOD GAS PO2 170 mmHg (75-100); ARTERIAL BLOOD GAS pH 7.47 (7.35-7.45)
[2016-11-03 05:33] LABS: Mean Cell Volume 93.7 fl (78-100); Mean Platelet Volume 10.8 fl (6-9.5); Platelet Count 95 K/mm3 (150-450); Red Blood Count 3.16 M/mm3 (4.1-5.4); Red Cell Distribution Width 14.5 % (11.5-14.0); White Blood Count 5.4 K/mm3 (4.0-10.5)
[2016-11-03 05:36] LABS: Mean Corpuscular Hemoglobin 28.7 pg (26-32)
[2016-11-03] MEDS: Zosyn 2.25 GM 2.25 GM in D5w 100ML Mini Bag 100 ML 100 ML IV SCH ×4 (05:38→23:54)
[2016-11-03] MEDS: solu-MEDROL 125 MG IV SCH ×3 (05:52→21:34)
[2016-11-03 05:54] LABS: ALBUMIN 2.5 g/dL (3.4-5.0); ANION GAP 8.9 MEQ/L (5-15); BILIRUBIN,TOTAL 0.2 mg/dL (0.2-1.0); Carbon Dioxide 29.7 mEq/L (21-32); Potassium 3.9 mEq/L (3.5-5.1); Total Protein 5.3 gm/dL (6.4-8.2)
[2016-11-03] MEDS: Dextrose 5% -0.45 NaCl 1000 ML 1,000 ML IV SCH ×2 (06:47→18:04)
[2016-11-03] MEDS: LEVOFLOXACIN 750MG/150ML D5W 150 ML IV SCH (08:28)
[2016-11-03] MEDS ORDERED: TROUGH DRUG LEVELS IJ ONE (08:30)
--- NOTE | 2016-11-03 08:39 | XRAY ---
Indication: Patient on ventilator. Comparison: One day earlier. Portable chest less inflated today again without focal infiltrate, consolidation, or large effusion. Heart is not enlarged. Endotracheal tube tip now 7 cm above the soco. Stable NG tube and right central venous access catheter.
--- NOTE | 2016-11-03 08:47 | PCM.NOTE ---
Date and Time: 11/03/16840 Subjective Assessment: She continues to be sedated on the ventilator with family at the bedside. Her nurse reports she is off the dopamine drip and then her blood pressure was high so she was given a prn dose of hydralazine. She also received a dose of IV lasix yesterday for decreased urine out put and puffy right hand and face. - Review of Systems All Other Systems: Unable due to condition Objective Exam General Appearance: other (sedated and on ventilator) Skin Exam: normal color, warm, dry Respiratory Exam: other (few scattered wheezes, inbutabed on ventilator) Cardiovascular Exam: regular rate/rhythm, normal heart sounds, No murmur, No friction rub, No gallop Gastrointestinal/Abdomen Exam: soft, normal bowel sounds, No tenderness, No distention, No mass Extremity Exam: other (right hand puffy, no c/c/e of lower extremities bilat) OBJECTIVE DATA Vital Signs: Vital Signs - 24 hr Temp Pulse Resp BP Pulse Ox 11/03/16 08:00 98.3 F 70 16 197/67 98 11/03/16 07:00 81 16 182/66 98 11/03/16 06:48 67 22 97 11/03/16 06:00 61 16 177/66 98 11/03/16 05:00 61 16 165/49 98 11/03/16 04:00 98.0 F 54 L 19 165/78 98 11/03/16 03:36 52 L 16 99 11/03/16 03:00 52 L 16 145/52 98 11/03/16 02:00 53 L 18 134/45 98 11/03/16 01:30 149/53 11/03/16 01:00 66 16 181/57 98 11/03/16 00:00 49 L 11/02/16 23:59 97.7 F 59 L 16 182/64 99 11/02/16 23:39 50 L 17 99 11/02/16 23:00 48 L 16 174/62 99 11/02/16 22:00 55 L 17 172/62 99 11/02/16 21:00 62 16 187/74 98 11/02/16 20:00 98.2 F 51 L 16 154/63 98 11/02/16 19:00 50 L 17 188/74 99 11/02/16 18:00 69.9 F 50 L 17 164/64 99 11/02/16 17:00 96.8 F 51 L 17 173/64 99 11/02/16 15:39 97.4 F 48 L 16 156/54 99 11/02/16 15:00 96.8 F 51 L 16 163/57 99 11/02/16 14:15 48 L 16 97 11/02/16 14:00 97.5 F 46 L 16 170/75 99 11/02/16 13:00 97.1 F 49 L 16 167/62 99 11/02/16 12:00 97.4 F 48 L 16 161/52 99 11/02/16 11:43 97.2 F 55 L 16 171/66 99 11/02/16 11:00 97.2 F 51 L 16 148/53 99 11/02/16 10:25 55 L 16 99 11/02/16 09:50 96.9 F 51 L 16 120/44 99 11/02/16 09:00 97.1 F 51 L 16 151/59 99 Oxygen-Last 24 hours O2 Percentage 40% O2 Percentage 40% O2 Percentage 40% O2 Percentage 40% O2 Percentage 40% O2 Percentage 40% O2 Percentage 40% O2 Percentage 40% O2 Percentage 40% O2 Percentage 40% O2 Percentage 40% O2 Percentage 40% O2 Percentage 40% O2 Percentage 40% O2 Percentage 40% O2 Percentage 40% O2 Percentage 40% O2 Percentage 40% O2 Percentage 40% O2 Percentage 40% O2 Percentage 40% O2 Percentage 40% Pain Assessment - Last Documented Pain Intensity 2 Pain Scale Used [facility] Intake and Output: Intake & Output 11/01/16 11/02/16 11/03/16 11/04/16 06:59 06:59 06:59 06:59 Intake Total 4321 3515 Output Total 1700 2100 450 Balance 2621 1415 -450 Weight 100.652 kg 100.698 kg 102.2 kg Lab Results: Accuchecks Date 11/03/16 Date 11/02/16 Date 11/02/16 Date 11/02/16 Time 04:50 Time 22:00 Time 15:44 Time 09:50 Accucheck Value: 269 Accucheck Value: 254 Accucheck Value: 243 Lab Results-Last 24 Hours 11/02/16 11/03/16 11/03/16 Range/Units 10:00 05:25 05:31 WBC 5.4 (4.0-10.5) K/mm3 RBC 3.16 L (4.1-5.4) M/mm3 Hgb 9.1 L (12.0-16.0) gm/dl Hct 29.6 L (35-47) % MCV 93.7 (78-100) fl MCH 28.7 (26-32) pg MCHC 30.7 L (32-36) g/dl RDW 14.5 H (11.5-14.0) % Plt Count 95 L (150-450) K/mm3 MPV 10.8 H (6-9.5) fl Puncture Site RIGHT BRACHIAL pCO2 41 (35-45) mmHg pO2 170 H* (75-100) mmHg Base Excess 5.6 H (-2.0-2.0) O2 Saturation 95.0 (94-100) g/dF ABG pH 7.47 H (7.35-7.45) ABG HCO3 29.8 H* (22-28) ABG O2 Sat (Measured) 98.4 (95-100) % Leandro Test NOT APPLICABLE A-a Gradient 64 a/A Ratio 0.73 Hemoglobin 9.4 Carboxyhemoglobin 2.9 (0.0-6.9) % THgb Methemoglobin 0.6 L (1.4-1.5) % Potassium 3.9 (3.5-5.1) Temperature 37.0 C POC O2 Flow Rate 40 % Vent Mode A/C Tidal Volume 500 cc PEEP 3 cmH2O Sodium (136-145) mEq/L Chloride (98-107) mEq/L Carbon Dioxide (21-32) mEq/L Anion Gap (5-15) MEQ/L BUN (9-20) mg/dL Creatinine (0.55-1.30) mg/dl Estimated GFR ML/MIN Glucose (70-110) MG/DL Calcium (8.5-10.1) mg/dL Total Bilirubin (0.2-1.0) mg/dL AST (15-37) U/L ALT (12-78) U/L Alkaline Phosphatase (46-116) U/L Serum Total Protein (6.4-8.2) gm/dL Albumin (3.4-5.0) g/dL Slides for Path Review 11/03/16 Range/Units 05:31 WBC (4.0-10.5) K/mm3 RBC (4.1-5.4) M/mm3 Hgb (12.0-16.0) gm/dl Hct (35-47) % MCV (78-100) fl MCH (26-32) pg MCHC (32-36) g/dl RDW (11.5-14.0) % Plt Count (150-450) K/mm3 MPV (6-9.5) fl Puncture Site pCO2 (35-45) mmHg pO2 (75-100) mmHg Base Excess (-2.0-2.0) O2 Saturation (94-100) g/dF ABG pH (7.35-7.45) ABG HCO3 (22-28) ABG O2 Sat (Measured) (95-100) % Leandro Test A-a Gradient a/A Ratio Hemoglobin Carboxyhemoglobin (0.0-6.9) % THgb Methemoglobin (1.4-1.5) % Potassium 3.9 (3.5-5.1) Temperature C POC O2 Flow Rate % Vent Mode Tidal Volume cc PEEP cmH2O Sodium 146 H (136-145) mEq/L Chloride 111 H (98-107) mEq/L Carbon Dioxide 29.7 (21-32) mEq/L Anion Gap 8.9 (5-15) MEQ/L BUN 19 (9-20) mg/dL Creatinine 1.13 (0.55-1.30) mg/dl Estimated GFR 49 ML/MIN Glucose 265 H (70-110) MG/DL Calcium 8.1 L (8.5-10.1) mg/dL Total Bilirubin 0.2 (0.2-1.0) mg/dL AST 20 (15-37) U/L ALT 40 (12-78) U/L Alkaline Phosphatase 47 (46-116) U/L Serum Total Protein 5.3 L (6.4-8.2) gm/dL Albumin 2.5 L (3.4-5.0) g/dL Slides for Path Review Radiology Exams: Radiology Procedures Category Date Time Status CHEST 1 VIEW (PORTABLE) DAILY Exams 11/02/16 06:00 Completed CHEST 1 VIEW (PORTABLE) DAILY Exams 11/03/16 06:00 Completed CHEST 1 VIEW (PORTABLE) DAILY Exams 11/04/16 06:00 Ordered CHEST 1 VIEW (PORTABLE) Stat Exams 11/01/16 07:50 Completed CHEST 1 VIEW (PORTABLE) Stat Exams 11/01/16 13:14 Completed Assessment/Plan (1) Acute on chronic respiratory failure with hypercapnia Current Visit: Yes Status: Acute Assessment & Plan: Continue with ventilation per Dr. Jack Trevino. Code(s): J96.22 - ACUTE AND CHRONIC RESPIRATORY FAILURE WITH HYPERCAPNIA (2) Acute exacerbation of chronic obstructive pulmonary disease (COPD) Current Visit: No Status: Acute Assessment & Plan: Continue with IV antibiotics, steroids, oxygen, ventilation. Code(s): J44.1 - CHRONIC OBSTRUCTIVE PULMONARY DISEASE W (ACUTE) EXACERBATION (3) Tracheomalacia, acquired Current Visit: Yes Status: Acute Code(s): J39.8 - OTHER SPECIFIED DISEASES OF UPPER RESPIRATORY TRACT (4) Hypertension Current Visit: Yes Status: Acute Assessment & Plan: Her heart rate has been 50's to 60's so will hold off any beta alberto IV at this time. Will schedule IV hydralazine with orders to not give if systolic blood pressure <140. She takes blood pressure medicine at home on a regular basis. Code(s): I10 - ESSENTIAL (PRIMARY) HYPERTENSION
[2016-11-03] MEDS: VANCOCIN 1 GM VIAL*** 1 GM in Sodium Chloride 0.9% 250 ML 250 ML IV SCH (10:26)
[2016-11-03 10:46] LABS: INR 1.03 (0.8-3.0); PROTIME 11.5 SECONDS (9.95-12.35)
[2016-11-03] MEDS: Lubrifresh P.M. 3.5 gm Ointment OP SCH ×2 (10:57→21:34)
[2016-11-03] MEDS: PERIDEX PO SCH ×2 (10:58→21:45)
[2016-11-03] MEDS: Pepcid 20 MG VIAL IV SCH ×2 (11:05→21:47)
[2016-11-03] MEDS: ENOXAPARIN SODIUM SQ SCH (13:29)
[2016-11-03] MEDS: APRESOLINE 20 MG/ML INJ IV SCH ×2 (15:11→21:29)
[2016-11-03] MEDS ORDERED: Diflucan/Saline 0.2G/100ML PREMIX*** 100 ML IV ONE (18:30)
[2016-11-03] MEDS ORDERED: FENTANYL 500 MCG/10 ML VIAL IV ONE (19:06)
[2016-11-03] MEDS: SUBLIMAZE 1000 Mcg/ 20 Ml*** 1,500 MCG in Sodium Chloride 0.9% 150 ML 120 ML IV SCH (19:51)
[2016-11-03] MEDS: Diflucan/Saline 0.2G/100ML PREMIX*** 100 ML IV SCH (19:59)
[2016-11-03] MEDS: Dopamine 400 MG/D5W 250ML PREMIX 250 ML IV SCH (21:52)
[2016-11-04] MEDS: NovoLOG Insulin SQ PRN ×4 (00:31→15:39)
[2016-11-04] MEDS: DIPRIVAN 100ML BOTTLE 100 ML IV SCH ×5 (01:53→13:03)
[2016-11-04] MEDS: DUONEB 0.5-3 MG/3 ml Neb IH SCH ×3 (03:01→10:52)
[2016-11-04] MEDS: APRESOLINE 20 MG/ML INJ IV SCH ×3 (05:28→14:04)
[2016-11-04] MEDS: solu-MEDROL 125 MG IV SCH ×3 (05:34→22:16)
[2016-11-04] MEDS: Zosyn 2.25 GM 2.25 GM in D5w 100ML Mini Bag 100 ML 100 ML IV SCH ×3 (05:34→17:02)
[2016-11-04 05:42] LABS: A-aADO2 44; ARTERIAL BLD GAS O2 SATURATION 98.4 % (95-100); ARTERIAL BLD GAS TIDAL VOLUME 500 cc; ARTERIAL BLOOD GAS FIO2 40 %; ARTERIAL BLOOD GAS PO2 185 mmHg (75-100); ARTERIAL BLOOD GAS pH 7.43 (7.35-7.45)
[2016-11-04 05:47] LABS: Mean Cell Volume 93.5 fl (78-100); Platelet Count 90 K/mm3 (150-450); Red Blood Count 3.24 M/mm3 (4.1-5.4); White Blood Count 7.8 K/mm3 (4.0-10.5)
[2016-11-04 05:55] LABS: Mean Corpuscular Hemoglobin 28.3 pg (26-32)
[2016-11-04 06:06] LABS: ALBUMIN 2.4 g/dL (3.4-5.0); ANION GAP 12.3 MEQ/L (5-15); BILIRUBIN,TOTAL 0.2 mg/dL (0.2-1.0); Potassium 4.1 mEq/L (3.5-5.1); Total Protein 5.3 gm/dL (6.4-8.2)
[2016-11-04] MEDS: APRESOLINE 20 MG/ML INJ IV PRN ×3 (06:13→20:14)
[2016-11-04] MEDS: Dextrose 5% -0.45 NaCl 1000 ML 1,000 ML IV SCH ×2 (06:19→22:16)
[2016-11-04] MEDS ORDERED: VANCOCIN 1 GM VIAL*** 1.25 GM in Sodium Chloride 0.9% 250 ML 250 ML IV SCH (07:00)
--- NOTE | 2016-11-04 08:49 | XRAY ---
Indication: Patient on ventilator. Comparison: One day earlier Portable chest remains clear without cardiomegaly. Again right central venous access catheter, endotracheal tube, and NG tube in situ all in good position. No new/acute findings.
[2016-11-04] MEDS: Dopamine 400 MG/D5W 250ML PREMIX 250 ML IV SCH (09:15)
[2016-11-04] MEDS: Pepcid 20 MG VIAL IV SCH ×2 (10:47→22:16)
[2016-11-04] MEDS: ENOXAPARIN SODIUM SQ SCH (10:47)
[2016-11-04] MEDS: Lubrifresh P.M. 3.5 gm Ointment OP SCH (10:47)
--- NOTE | 2016-11-04 11:00 | PCM.NOTE ---
Date and Time: 11/04/16 1057 Subjective Assessment: patient failed attempt to wean yesterday, family has discussed and wants to extubate today and understands she might not be able to breath on her own and want comfort measures only Objective Exam General Appearance: other (sedated, on ventilator. unresponsive) Skin Exam: normal color, warm, dry Respiratory Exam: prolonged expirations, wheezing Cardiovascular Exam: regular rate/rhythm, normal heart sounds Gastrointestinal/Abdomen Exam: soft, No tenderness, No mass Extremity Exam: normal inspection, normal range of motion OBJECTIVE DATA Vital Signs: Vital Signs - 24 hr Temp Pulse Resp BP Pulse Ox 11/04/16 10:00 97.6 F 60 16 152/55 98 11/04/16 09:00 97.6 F 55 L 16 172/63 98 11/04/16 07:40 97.6 F 54 L 16 151/53 98 11/04/16 07:00 56 L 15 140/48 98 11/04/16 06:00 56 L 16 143/51 96 11/04/16 05:00 71 20 179/67 98 11/04/16 04:00 97.6 F 71 17 149/71 98 11/04/16 03:00 61 19 173/61 98 11/04/16 02:00 53 L 17 157/55 98 11/04/16 01:00 55 L 16 166/56 98 11/04/16 00:00 97.8 F 56 L 16 157/55 98 11/03/16 23:00 97.8 F 556 H 16 157/55 98 11/03/16 22:00 55 L 16 156/58 97 11/03/16 21:00 65 16 165/54 98 11/03/16 20:00 98.8 F 65 16 163/60 98 11/03/16 19:00 64 18 163/60 97 11/03/16 18:38 66 16 98 11/03/16 18:00 57 L 16 143/53 97 11/03/16 17:00 57 L 17 138/55 97 11/03/16 16:00 98.2 F 56 L 16 120/47 97 11/03/16 15:00 77 16 190/68 98 11/03/16 14:41 76 16 98 11/03/16 14:00 55 L 16 173/58 97 11/03/16 13:00 57 L 18 158/55 98 11/03/16 12:00 98.6 F 59 L 16 149/51 97 11/03/16 11:00 62 16 114/49 97 Oxygen-Last 24 hours O2 Percentage 40% O2 Percentage 40% O2 Percentage 40% O2 Percentage 40% O2 Percentage 40% O2 Percentage 40% O2 Percentage 40% O2 Percentage 40% O2 Percentage 40% O2 Percentage 40% O2 Percentage 40% O2 Percentage 40% O2 Percentage 40% O2 Percentage 40% O2 Percentage 40% O2 Percentage 40% O2 Percentage 40% O2 Percentage 40% Pain Assessment - Last Documented Pain Intensity 3 Pain Scale Used 0-10 Pain Scale Intake and Output: Intake & Output 11/01/16 11/02/16 11/03/16 11/04/16 11:59 11:59 11:59 11:59 Intake Total 4321 3515 3273 Output Total 1700 2550 1930 Balance 2621 965 1343 Weight 100.652 kg 100.698 kg 102.2 kg 103.51 kg Lab Results: Accuchecks Date 11/04/16 Date 11/04/16 Date 11/04/16 Time 10:20 Time 04:40 Time 00:20 Accucheck Value: 231 Accucheck Value: 247 Accucheck Value: 263 Accucheck Value: 253 Lab Results-Last 24 Hours 11/04/16 11/04/16 11/04/16 Range/Units 05:00 05:30 05:30 WBC 7.8 (4.0-10.5) K/mm3 RBC 3.24 L (4.1-5.4) M/mm3 Hgb 9.2 L (12.0-16.0) gm/dl Hct 30.3 L (35-47) % MCV 93.5 (78-100) fl MCH 28.3 (26-32) pg MCHC 30.4 L (32-36) g/dl RDW 15.0 H (11.5-14.0) % Plt Count 90 L (150-450) K/mm3 MPV 11.0 H (6-9.5) fl Puncture Site RIGHT BRACHIAL pCO2 45 (35-45) mmHg pO2 185 H* (75-100) mmHg Base Excess 5.0 H (-2.0-2.0) O2 Saturation 95.7 (94-100) g/dF ABG pH 7.43 (7.35-7.45) ABG HCO3 29.9 H* (22-28) ABG O2 Sat (Measured) 98.4 (95-100) % Leandro Test NOT APPLICABLE A-a Gradient 44 a/A Ratio 0.81 Hemoglobin 9.4 Carboxyhemoglobin 1.6 (0.0-6.9) % THgb Methemoglobin 1.1 L (1.4-1.5) % Potassium 4.0 4.1 (3.5-5.1) Temperature 37.0 C POC O2 Flow Rate 40 % Vent Mode A/C Tidal Volume 500 cc PEEP 3 cmH2O Sodium 146 H (136-145) mEq/L Chloride 110 H (98-107) mEq/L Carbon Dioxide 28.0 (21-32) mEq/L Anion Gap 12.3 (5-15) MEQ/L BUN 22 H (9-20) mg/dL Creatinine 1.04 (0.55-1.30) mg/dl Estimated GFR 54 ML/MIN Glucose 243 H (70-110) MG/DL Calcium 8.3 L (8.5-10.1) mg/dL Total Bilirubin 0.2 (0.2-1.0) mg/dL AST 15 (15-37) U/L ALT 29 (12-78) U/L Alkaline Phosphatase 41 L (46-116) U/L Serum Total Protein 5.3 L (6.4-8.2) gm/dL Albumin 2.4 L (3.4-5.0) g/dL Slides for Path Review YES Radiology Exams: Radiology Procedures Category Date Time Status CHEST 1 VIEW (PORTABLE) DAILY Exams 11/03/16 06:00 Completed CHEST 1 VIEW (PORTABLE) DAILY Exams 11/04/16 06:00 Completed CHEST 1 VIEW (PORTABLE) DAILY Exams 11/05/16 06:00 Ordered Assessment/Plan (1) Acute on chronic respiratory failure with hypercapnia Current Visit: Yes Status: Acute Assessment & Plan: had a long discussion with the patient's son and 3 daughters. they all agree with plan to stop sedation and extubate today. supportive care measures at this time. would not be unexpected and the family is understanding of this Code(s): J96.22 - ACUTE AND CHRONIC RESPIRATORY FAILURE WITH HYPERCAPNIA (2) Tracheomalacia, acquired Current Visit: Yes Status: Acute Code(s): J39.8 - OTHER SPECIFIED DISEASES OF UPPER RESPIRATORY TRACT (3) Acute exacerbation of chronic obstructive pulmonary disease (COPD) Current Visit: No Status: Acute Assessment & Plan: on vanc, zosyn, levaquin and IV solu medrol. Code(s): J44.1 - CHRONIC OBSTRUCTIVE PULMONARY DISEASE W (ACUTE) EXACERBATION (4) Pneumonia Current Visit: No Status: Acute Code(s): J18.9 - PNEUMONIA, UNSPECIFIED ORGANISM
[2016-11-04] MEDS: PERIDEX PO SCH (11:02)
[2016-11-04] MEDS: SUBLIMAZE 100 MCG/2 ML IV PRN ×5 (13:28→20:44)
[2016-11-04] MEDS ORDERED: TRANDATE 20 MG/5 ML SYRINGE IV PRN (16:21)
[2016-11-04] MEDS: Diflucan/Saline 0.2G/100ML PREMIX*** 100 ML IV SCH (18:45)
[2016-11-04] MEDS ORDERED: Ativan 2 MG/1 ML VIAL ONE (21:23)
[2016-11-04] MEDS: Ativan 2 MG/1 ML VIAL IV PRN (21:31)
[2016-11-04] MEDS: SUBLIMAZE 1000 Mcg/ 20 Ml*** 1,500 MCG in Sodium Chloride 0.9% 150 ML 120 ML IV SCH (23:07)
[2016-11-05] MEDS: Zosyn 2.25 GM 2.25 GM in D5w 100ML Mini Bag 100 ML 100 ML IV SCH ×2 (00:33→05:30)
[2016-11-05] MEDS: APRESOLINE 20 MG/ML INJ IV SCH ×4 (03:10→14:14)
[2016-11-05] MEDS: Ativan 2 MG/1 ML VIAL IV PRN ×3 (03:47→20:07)
[2016-11-05] MEDS: solu-MEDROL 125 MG IV SCH (05:31)
--- NOTE | 2016-11-05 05:49 | PCM.NOTE ---
Date and Time: 11/05/16 0546 Subjective Assessment: patient was extubated yesterday, she is having infrequent snoring respirations. no new concerns, seems to be comfortable with prn ativan order and fentanyl. family requests that antibiotics be stopped, she is not making much urine at this point Objective Exam General Appearance: no apparent distress, lethargy Respiratory Exam: prolonged expirations Cardiovascular Exam: regular rate/rhythm, normal heart sounds Gastrointestinal/Abdomen Exam: soft, No tenderness, No mass Extremity Exam: normal inspection, normal range of motion OBJECTIVE DATA Vital Signs: Vital Signs - 24 hr Temp Pulse Resp BP Pulse Ox 11/05/16 05:00 77 5 L 187/68 97 11/05/16 04:00 79 5 L 204/79 96 11/05/16 03:00 74 5 L 208/75 96 11/05/16 02:00 73 5 L 196/75 96 11/05/16 01:00 70 5 L 98 11/05/16 00:00 77 6 L 196/75 96 11/04/16 23:00 77 6 L 97 11/04/16 22:00 92 H 6 L 171/82 97 11/04/16 21:00 92 H 6 L 218/79 95 11/04/16 20:00 97.4 F 92 H 15 240/104 98 11/04/16 19:23 82 12 91 L 11/04/16 18:51 76 17 192/87 94 L 11/04/16 17:50 85 7 L 171/69 94 L 11/04/16 17:00 88 17 212/85 98 11/04/16 16:37 87 15 180/84 98 11/04/16 16:00 111 H 11/04/16 15:41 98.5 F 100 H 22 214/92 97 11/04/16 15:00 100 H 15 202/91 98 11/04/16 14:32 109 H 17 203/91 96 11/04/16 14:00 98 F 113 H 19 223/104 98 11/04/16 13:00 113 H 20 222/100 99 11/04/16 12:00 108 H 20 220/92 99 11/04/16 10:59 97.6 F 60 16 168/65 98 11/04/16 10:00 97.6 F 68 16 152/55 98 11/04/16 09:00 97.6 F 55 L 16 172/63 98 11/04/16 07:40 97.6 F 54 L 16 151/53 98 11/04/16 07:00 56 L 15 140/48 98 11/04/16 06:00 56 L 16 143/51 96 Oxygen-Last 24 hours O2 Percentage 100% O2 Percentage 100% O2 Percentage 100% O2 Percentage 100% O2 Percentage 100% O2 Percentage 100% O2 Percentage 100% O2 Percentage 100% O2 Percentage 40% O2 Percentage 40% O2 Percentage 40% O2 Percentage 40% O2 Percentage 40% O2 Percentage 40% O2 Percentage 40% O2 Percentage 40% Pain Assessment - Last Documented Pain Intensity 3 Pain Scale Used 0-10 Pain Scale Intake and Output: Intake & Output 11/02/16 11/03/16 11/04/16 11/05/16 11:59 11:59 11:59 11:59 Intake Total 4321 3515 3273 1317 Output Total 1700 2550 1930 1000 Balance 2621 965 1343 317 Weight 100.698 kg 102.2 kg 103.51 kg Lab Results: Accuchecks Date 11/04/16 Date 11/04/16 Time 15:39 Time 10:20 Accucheck Value: 203 Accucheck Value: 231 Lab Results-Last 24 Hours 11/04/16 11/04/16 Range/Units 05:30 05:30 WBC 7.8 (4.0-10.5) K/mm3 RBC 3.24 L (4.1-5.4) M/mm3 Hgb 9.2 L (12.0-16.0) gm/dl Hct 30.3 L (35-47) % MCV 93.5 (78-100) fl MCH 28.3 (26-32) pg MCHC 30.4 L (32-36) g/dl RDW 15.0 H (11.5-14.0) % Plt Count 90 L (150-450) K/mm3 MPV 11.0 H (6-9.5) fl Sodium 146 H (136-145) mEq/L Potassium 4.1 (3.5-5.1) mEq/L Chloride 110 H (98-107) mEq/L Carbon Dioxide 28.0 (21-32) mEq/L Anion Gap 12.3 (5-15) MEQ/L BUN 22 H (9-20) mg/dL Creatinine 1.04 (0.55-1.30) mg/dl Estimated GFR 54 ML/MIN Glucose 243 H (70-110) MG/DL Calcium 8.3 L (8.5-10.1) mg/dL Total Bilirubin 0.2 (0.2-1.0) mg/dL AST 15 (15-37) U/L ALT 29 (12-78) U/L Alkaline Phosphatase 41 L (46-116) U/L Serum Total Protein 5.3 L (6.4-8.2) gm/dL Albumin 2.4 L (3.4-5.0) g/dL Slides for Path Review YES Radiology Exams: Radiology Procedures Category Date Time Status CHEST 1 VIEW (PORTABLE) DAILY Exams 11/03/16 06:00 Completed CHEST 1 VIEW (PORTABLE) DAILY Exams 11/04/16 06:00 Completed CHEST 1 VIEW (PORTABLE) DAILY Exams 11/05/16 06:00 Ordered Multi-Disciplinary Progress Notes: Multi-Disciplinary Progress Notes 11/04/16 22:35 Respiratory Note by Jona Butr DC'Juan Francisco ORDERS FOR NEB [place] PT IS SCO. Initialized on 11/04/16 22:35 - END OF NOTE 11/04/16 13:56 Respiratory Note by Dinorah Abreu 1146 DIPRIVAN DEEPTI OFF. FAMILY NOT IN ROOM PER THEIR REQUEST. 1151 PLACED ON CPAP 5 PS 10. 1154 RR-16 SPONTANOUS VT 705 ETCO2 43 SPO2 96. PT TOLERATING WELL. 1204 PT EXTUBATED PLACED ON 10LPM OXYMASK NO COMPLICATIONS. FAMILY BACK AT BEDSIDE Initialized on 11/04/16 13:56 - END OF NOTE Assessment/Plan (1) Acute on chronic respiratory failure with hypercapnia Current Visit: Yes Status: Acute Assessment & Plan: focus is currently on comfort measures, will d/c abx per family request. focus is on comfort measures only at this time per their request and I feel this is reasonable. she has snoring respirations of 5-6/min at this time so is likely fairly soon Code(s): J96.22 - ACUTE AND CHRONIC RESPIRATORY FAILURE WITH HYPERCAPNIA (2) Tracheomalacia, acquired Current Visit: Yes Status: Acute Code(s): J39.8 - OTHER SPECIFIED DISEASES OF UPPER RESPIRATORY TRACT (3) Acute exacerbation of chronic obstructive pulmonary disease (COPD) Current Visit: No Status: Acute Code(s): J44.1 - CHRONIC OBSTRUCTIVE PULMONARY DISEASE W (ACUTE) EXACERBATION (4) Pneumonia Current Visit: No Status: Acute Code(s): J18.9 - PNEUMONIA, UNSPECIFIED ORGANISM
[2016-11-05] MEDS: Dextrose 5% -0.45 NaCl 1000 ML 1,000 ML IV SCH (07:26)
[2016-11-05] MEDS: SUBLIMAZE 1000 Mcg/ 20 Ml*** 1,500 MCG in Sodium Chloride 0.9% 150 ML 120 ML IV SCH ×2 (07:28→16:01)
[2016-11-05] MEDS: DUONEB 0.5-3 MG/3 ml Neb IH SCH ×2 (07:30→07:31)
[2016-11-05] MEDS: Pepcid 20 MG VIAL IV SCH ×2 (10:19→22:18)
[2016-11-06] MEDS: Ativan 2 MG/1 ML VIAL IV PRN ×2 (00:10→04:39)
[2016-11-06] MEDS: Dextrose 5% -0.45 NaCl 1000 ML 1,000 ML IV SCH (00:54)
[2016-11-06] MEDS: APRESOLINE 20 MG/ML INJ IV SCH (01:13)
[2016-11-06 07:59] VITALS: BP 130/81; PULSE 98; O2SAT 88
[2016-11-06] MEDS ORDERED: SUBLIMAZE 100 MCG/2 ML IV PRN (08:42)
--- NOTE | 2016-11-06 08:52 | PCM.NOTE ---
Date and Time: 11/06/16 0849 Subjective Assessment: Her family is at the bedside. She is end of life care. They do not feel like she is in any distress. She has been on a fenanyl drip since coming off the vent. I discussed stopping this with them and using as needed doses of pain medication and they are agreeable to this. - Review of Systems All Other Systems: Unable due to condition Objective Exam General Appearance: other (shallow breaths, some snoring sounds with the breathing; does not arouse.) Skin Exam: normal color, warm, dry, other (ecchymosis on left hand, mild swelling of hands bilat) Respiratory Exam: other (equal breath sounds, no wheezing or crackles noticed when ausculated anteriorly.) Cardiovascular Exam: regular rate/rhythm, normal heart sounds, friction rub, No murmur, No gallop Gastrointestinal/Abdomen Exam: soft Extremity Exam: other (no c/c, trace edema) OBJECTIVE DATA Vital Signs: Vital Signs - 24 hr Temp Pulse Resp BP Pulse Ox 11/06/16 07:58 98 F 98 H 22 130/81 88 L 11/06/16 06:00 10 L 11/06/16 04:00 98.9 F 101 H 10 L 201/84 97 11/06/16 02:00 10 L 11/06/16 00:00 98.8 F 81 10 L 208/84 97 11/05/16 21:22 11 L 11/05/16 20:00 98.7 F 90 11 L 149/65 96 11/05/16 17:56 8 L 11/05/16 16:00 99 F 95 H 12 205/90 96 11/05/16 14:00 12 11/05/16 12:47 98 F 90 20 231/93 95 11/05/16 10:00 97.4 F 88 12 200/76 96 11/05/16 08:53 85 12 214/75 96 Oxygen-Last 24 hours O2 Percentage 4 Liters = 36% O2 Percentage 4 Liters = 36% O2 Percentage 4 Liters = 36% O2 Percentage 5 Liters = 40% O2 Percentage 4 Liters = 36% O2 Percentage 4 Liters = 36% O2 Percentage 4 Liters = 36% Pain Assessment - Last Documented Pain Intensity 3 Pain Scale Used 0-10 Pain Scale Intake and Output: Intake & Output 11/04/16 11/05/16 11/06/16 03/21/17 06:59 06:59 06:59 06:59 Intake Total 3273 1317 1036 Output Total 2380 1000 1350 Balance 893 317 -314 Weight 103.51 kg Assessment/Plan (1) Acute on chronic respiratory failure with hypercapnia Current Visit: Yes Status: Acute Assessment & Plan: End of life care now. Will use fentanyl as needed for pain and ativan as needed for anxiety. Code(s): J96.22 - ACUTE AND CHRONIC RESPIRATORY FAILURE WITH HYPERCAPNIA (2) Acute exacerbation of chronic obstructive pulmonary disease (COPD) Current Visit: No Status: Acute Code(s): J44.1 - CHRONIC OBSTRUCTIVE PULMONARY DISEASE W (ACUTE) EXACERBATION (3) Tracheomalacia, acquired Current Visit: Yes Status: Acute Code(s): J39.8 - OTHER SPECIFIED DISEASES OF UPPER RESPIRATORY TRACT (4) Hypertension Current Visit: Yes Status: Acute Assessment & Plan: She has as needed doses of blood pressure ordered. Code(s): I10 - ESSENTIAL (PRIMARY) HYPERTENSION
--- NOTE | 2016-11-09 14:33 | DS ---
SUMMARY: FINAL DIAGNOSES: 1) RIGHT LOWER LOBE PNEUMONIA. 2) ACUTE CHRONIC OBSTRUCTIVE PULMONARY DISEASE EXACERBATION WITH ACUTE ON CHRONIC RESPIRATORY FAILURE WITH HYPERCAPNIA. 3) TRACHEOMALACIA. 4) HYPERTENSION. 5) HYPOTENSION. 6) CHEST PAIN. HOSPITAL COURSE: 1) RIGHT LOWER LOBE PNEUMONIA: She was started on Zosyn on her first hospital day with adding Vancomycin to cover for methicillin resistant staphylococcus aureus, levofloxacin to cover for pseudomonas on 11/01/2016. These antibiotics were continued until 11/04/2016 when the family talked with the on-call doctor, Dr. Jacques Solis and decided to use comfort measures only and they did not want to continue the antibiotics. 2) CHRONIC OBSTRUCTIVE PULMONARY DISEASE WITH ACUTE EXACERBATION WITH ACUTE ON CHRONIC RESPIRATORY FAILURE WITH HYPERCAPNIA. The first morning I saw her the patient had an elevated CO2 level and so she was placed on BiPAP and child care specialist, Dr. Dela Cruz was consulted. On the morning of 11/01/2016, she had an episode of chest pain and another blood gas was done and the pCO2 was even worse despite being on BiPAP overnight so she was intubated. The emergency room doctor, Dr. Chen, was present for that. She was continued on mechanical ventilation under Dr. Sammy Dela Cruz's direction until the family decided to withdraw mechanical ventilation on 11/04/2016. Again they discussed this with the on-call doctor, Dr. Solis, that morning. I have started her on IV steroids on 11/01/2016 as she had some wheezing on exam then. We were trying to limit the steroid use due to her history of tracheomalacia, as the child care specialist that had seen in her [place] had suggested trying not to use steroids if at all possible. 2) TRACHEOMALACIA: Again she had this condition which complicated her acute chronic obstructive pulmonary disease exacerbation and infection. She had already undergone extensive work up for this in [place] and in the past they tried a stent which had not worked and they had to remove it. 3) HYPERTENSION: She has a history of high blood pressure and was on multiple medications at home. On the morning of 11/01/2016 when she complained of chest pain her blood pressure was really high and the emergency room doctor gave her a dose of labetalol. She then developed hypotension which we will discuss in the next number. After the hypotension resolves she had high blood pressure again and had to use PRN doses of hydralazine for this. 4) HYPOTENSION: After she was intubated she had a very low blood pressure. Dopamine drip was started and a 500 ml fluid bolus was given with the dopamine and the fluid bolus her blood pressure did come up but the nurses noted that it was very labile. 5) CHEST PAIN: Her daughter said before she was intubated on 11/01/2016 she complained of chest pain. We checked serial troponins and the last one was slightly elevated. Her beach attendant was consulted and stated at this time there is nothing further that they would do with this. Miss Harmony Stevens on 11/06/2016. She had mechanical ventilation withdrawn on 11/04/2016. She was kept comfortable during this time per her family wishes and was made supportive care only. They knew that her prognosis was poor and was expected. CAUSE OF : Chronic obstructive pulmonary disease and tracheomalacia.
== END 2016-11-06 10:55 | disposition expired | DRG 207 ==
LOC: ED 21:04 → MED SURG 23:56 → OBSVTOIN 11-01 05:20 → ICU 11-01 07:50 → MED SURG 11-05 11:00
PROVIDERS: ADMIT Internal Medicine; ATTEND Internal Medicine
PROC: 5A1955Z Respiratory Ventilation, Greater than 96 Consecutive Hours (ICD-10-PCS; principal; 2016-11-01)
PROC: 0BH18EZ Insertion of Endotracheal Airway into Trachea, Via Natural or Artificial Opening Endoscopic (ICD-10-PCS; 2016-11-01)
DX: J18.9 Pneumonia, unspecified organism (principal); J96.22 Acute and chronic respiratory failure with hypercapnia; J44.0 Chronic obstructive pulmonary disease with (acute) lower respiratory infection; J44.1 Chronic obstructive pulmonary disease with (acute) exacerbation; J15.212 Pneumonia due to Methicillin resistant Staphylococcus aureus; J20.9 Acute bronchitis, unspecified; J39.8 Other specified diseases of upper respiratory tract; I10 Essential (primary) hypertension; I95.2 Hypotension due to drugs; R07.89 Other chest pain; Z99.81 Dependence on supplemental oxygen; F41.9 Anxiety disorder, unspecified; G47.33 Obstructive sleep apnea (adult) (pediatric); M19.90 Unspecified osteoarthritis, unspecified site; Z79.899 Other long term (current) drug therapy; Z87.891 Personal history of nicotine dependence
CPT/HCPCS: 31500; 36415; 36600; 71010; 80053; 80202; 82150; 82375; 82803; 82947; 82962; 83605; 83690; 83735; 83880; 84484; 85025; 85027; 85610; 85730; 86308; 87040; 87070; 87077; 87086; 87430; 87631; 93005; 93041; 93268; 94002; 94003; 94640; 94760; 94770; 96360; 96361; 96365; 96367; 99285; G0378; J0360; J0456; J0696; J1265; J1450; J1642; J1650; J1940; J1956; J2060; J2250; J2543; J2550; J2704; J2930; J3010; J3370; A9270-GY; J7506